=== PATIENT | female | born 1935 | race Caucasian/White ===

== ENCOUNTER 2017-06-30 12:08 | Inpatient (IN) | payer OTHER, BC ==
[~2017-06-30] VITALS: Ht 165.1 cm; Wt 69.4 kg
--- NOTE | ~2017-06-30 | HC ---
[facility] [place] [address] CONSULTATION Name: JEREMY GAFFNEY Room #: 201-P ADM IN M.R.#: [id number] Admission: 06/30/17 Attend Phys: Dylan Calderon DO Discharge: Date of : 39 Report #: [id number] THIS REPORT FOR: //name// CC: Dylan De Leon MD PRIMARY PHYSICIAN: Edmund De Leon MD REFERRAL PHYSICIAN: Dylan Calderon DO REASON FOR REFERRAL: Dyspnea. HISTORY OF PRESENT ILLNESS: The patient is an 82-year-old white female who presents to the emergency room with progressive dyspnea. She is felt to have heart failure. The patient also has COPD. A pulmonary consultation was requested. The patient is followed longitudinally by Dr. Blake Barajas for COPD. She was last seen in the office several months ago. The patient states that she was in her usual state of health until about for the past week or so, she has noticed increasing lower extremity edema and dyspnea. Chest x-ray on admission revealed cardiomegaly, [id number] left side pleural effusion with increasing interstitial edema. Otherwise, denies any chest pain, febrile illness, productive cough, nausea, vomiting, or diarrhea. PAST MEDICAL HISTORY: Notable for COPD, severity unknown; atrial fibrillation, hypertension, is followed longitudinally by Dr. Mari Douglas, child psychometrist at [facility], status post permanent pacemaker placement, hyperlipidemia, and chronic diastolic heart failure. PAST SURGICAL HISTORY: As mentioned above including pacemaker placement, status post right hip surgery. ALLERGIES: None. HOME MEDICATIONS: Reviewed. This includes brimonidine, Pravachol, timolol, Spiriva one capsule once a day, Pradaxa, Cardizem, digoxin, Lasix, and potassium supplements. FAMILY HISTORY: Noncontributory. SOCIAL HISTORY: She is a lifetime nonsmoker. Denies any alcohol use. [facility] [address] [place] [address] CONSULTATION Name: JEREMY GAFFNEY Room #: 201-P [facility] IN [facility].#: [id number] Admission: 06/30/17 Attend Phys: Dylan Calderon DO Discharge: Date of : 39 Report #: [id number] REVIEW OF SYSTEMS: As mentioned above, otherwise 10-point system review negative. PHYSICAL EXAMINATION: GENERAL: She is awake, alert, in no apparent distress. She appears mildly dyspneic. VITAL SIGNS: Temperature is 98.7 degrees Fahrenheit, pulse is 76, respiratory rate is 20, blood pressure 122/43 mmHg, and saturation 99%. HEENT: Normocephalic, atraumatic. NECK: Supple without any lymphadenopathy or thyromegaly. CHEST: Breath sounds are good bilaterally, decreased in the bases. No rales. Question of few scattered crackles. CARDIOVASCULAR: Heart sounds normal S1, S2. There are no obvious murmurs or gallops. Pulses are 2+/4+ bilaterally. BREASTS: Deferred. ABDOMEN: Soft, nontender, no organomegaly or masses felt. GENITOURINARY: Deferred. RECTAL: Deferred. EXTREMITIES: There is notable for 2+ bilateral pretibial edema. No cyanosis or clubbing. LABORATORY DATA: Chest x-ray as mentioned above. BNP is . WBC is 1400, hemoglobin 6.2, MCV is 87, MCH is 28, MCHC is 32, and platelets normal. Prealbumin is 37.8. IMPRESSION: 1. Progressive dyspnea, edema in this 82-year-old white female. Etiology is likely secondary to acute on chronic diastolic heart failure. 2. Profound neutropenia, anemia, etiology is unclear. 3. Chronic obstructive pulmonary disease, severity unknown, without obvious evidence of exacerbation. 4. Pleural effusion, mild to moderate left side, due to heart failure. Follow up chest x-ray following diuresis. 5. Atrial fibrillation, status post permanent pacemaker placement. RECOMMENDATION: We will continue bronchodilators. Wean O2 for saturation 90%. Agree with diuresis. Follow up chest x-ray regarding pleural effusion. If it does not improve with medical treatment, therapeutic thoracentesis might be helpful. She has also been seen by hematology regarding anemia and leukopenia. Thank you for this consultation. <ELECTRONICALLY SIGNED> By: Phillip Echeverria MD 07/03/17 1233 D: 1055 Phillip Echeverria MD /nt
--- NOTE | ~2017-06-30 | S ---
[facility] [address] [place] [address] SURGICAL PATH RPT PROCEDURE Name: LOLIS YE Room #: 201-P ADM IN M.R.#: [id number] Admission: 06/30/17 Date of : 39 Discharge: Report #: [id number] Path Case #: [id number] PATHOLOGY REPORT COLLECTION DATE: 07/02/2017 RECEIVED DATE: 07/03/2017 SUBMITTING PHYS: Dr. Dylan Abdi OTHER PHYS: Dr. Rafael De Leon SPECIMEN(S) RECEIVED: A.Bone marrow, biopsy B.Bone marrow, clot and/or particle prep C.Bone marrow, aspirate smears D.Peripheral smear * * * * * * * * * * * * FINAL DIAGNOSIS: Bone marrow aspirate, biopsy, cell clot and peripheral blood: - Peripheral blood with pancytopenia including severe normocytic anemia, moderate leukopenia and mild thrombocytopenia. 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 See comment. (ALIYA:rupinder; 07/08/2017) [facility] STAGING REPORT Tumor Site: Bone marrow SPECIMEN Specimen: Peripheral blood smear Bone marrow aspiration Bone marrow aspirate clot (cell block) Bone marrow core (trephine) biopsy Bone marrow core touch preparation (imprint) Procedure: Aspiration Aspiration Site: Not specified Biopsy Biopsy Site: Not specified TUMOR Histologic Type (Based on the 2008 WHO Classification): Mature B-cell Neoplasms Other: small B cell lymphoma with plasmacytic differentiation SPECIAL STUDIES Immunophenotyping (flow cytometry and / or immunohistochemistry): Performed, see separate report: flow cytometry [facility] [address] [address] SURGICAL PATH RPT PROCEDURE Name: LOLIS YE Room #: 201-P [facility] IN [facility]#: [id number] Admission: 06/30/17 Date of : 39 Discharge: Report #: [id number] Path Case #: [id number] Cytogenetic Studies: Performed, see separate report: [facility] [id number] COMMENT: Overall, the bone marrow is markedly hypercellular for the patient's age with 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 Background trilineage hematopoiesis is decreased. The differential diagnosis includes marginal zone lymphoma and lymphoplasmacytic lymphoma. There is approximately 80% involvement by immunohistochemical staining. Correlation with clinical history, additional laboratory data, and radiographic findings is required. Morphologic evaluation of an involved lymph node (if present) or lymphoid organ may provide additional information, if clinically indicated. Mild dyspoiesis is also noted which does not meet the morphologic criteria for myelodysplasia and correlation with clinical history and cytogenetics is also recommended. [employer] slides are co-reviewed with Dr. Haydee Diaz. The case was discussed preliminarily with Dr. Rafael Red on 07/03/2017 at approximately 6:00 PM and again on 07/08/2017 at 8:15 AM. (CLW:rupinder; 07/08/2017) PATHOLOGIST: Antonietta Thomas M.D. REPORT ELECTRONICALLY SIGNED BY: Antonietta Thomas M.D. DATE/TIME: 07/08/2017 11:55 * * * * * * * * * * * * MICROSCOPIC DESCRIPTION: CBC Data (07/02/17): WBC 1,400 /uL, RBC 2.43, hemoglobin 7.1 g/dL, hematocrit 21.2%, MCV 87.3 fL, MCH 29.0 pg, MCHC 33.3 g/dL, RDW 20.3%, and platelet count 136,000 /uL. Manual white blood cell differential: segs 55%, bands 6%, lymphs 36%, and monos 3%. Peripheral Blood Smear: Cytomorphological examination of the Redd's stained peripheral blood smear confirms the provided data. Red blood cells show severe normocytic with mild to moderate anisocytosis. Minimal poikilocytosis is identified. Occasional elliptocytes and spherocytes are seen. No schistocytes or microspherocytes are identified. White blood cells are decreased in number. They are predominantly granulocytes and lymphocytes. Granulocytes are predominantly segmented neutrophils and are without significant dyspoiesis or significant left shift. Lymphocytes are predominantly small, round, and mature appearing with condensed chromatin and scant cytoplasm with admixed large granular lymphocytes. On scanning, no markedly atypical lymphoid cells are seen. Monocytes are mature. Platelets are adequate (mildly decreased) in number and mainly normal [address] [address] SURGICAL PATH RPT PROCEDURE Name: LOLIS YE Room #: 201-P ADM IN .R.#: [id number] Admission: 06/30/17 Date of : 39 Discharge: Report #: [id number] Path Case #: [id number] in morphology with rare larger platelets noted. Aspirate Smears: Cytomorphological examination of the Redd's stained aspirate smears shows hypercellular spicules present. The overall cellularity is approximately 90%. There is a predominant population of small, round, mature appearing lymphocytes with condensed chromatin and scant cytoplasm. Rare lymphocytes have slight plasmacytoid morphology. No markedly atypical lymphoid cells are seen. Background trilineage hematopoiesis is decreased. Occasional granulocytes, including scattered basophils, are noted and are without significant dyspoiesis. Erythroid progenitors are mildly dyserythropoietic with irregular nuclear contours and nuclear cytoplasmic dyssynchrony. There are a normal number of megakaryocytes that are both normal and abnormal in morphology with variable sizes in nuclear abnormalities. Occasional plasma cells are without cytologic atypia. Iron stain of the aspirate smear shows 0/4+ iron positivity with no intact spicules present. Scattered progenitor cells are noted and no ringed sideroblasts are identified. Core Biopsy and Cell Clot: The decalcified bone marrow core biopsy is adequate. The bone marrow is hypercellular with an overall cellularity of approximately 95%. The predominant nucleated cell seen is a small, mature appearing lymphocyte with slightly irregular nuclear contours, condensed chromatin and scant to focally moderate cytoplasm. Neither a high mitotic rate nor abundant single cell necrosis is seen. Geographic necrosis is not identified. Background trilineage hematopoiesis is decreased. There are a normal number of both normal and abnormal megakaryocytes identified. The myeloid to erythroid ratio, myeloid maturation and erythroid maturation cannot be accurately evaluated. Bony trabeculae and blood vessels are unremarkable. The cell clot has very rare small spicules present that are similar in cellularity and differential morphology as previously described. Iron stain of the core biopsy (Block A1) shows 2/4+ iron positivity. Iron stain of the cell clot (Block B1) shows 0/4+ iron positivity with only a rare spicule present. To confirm the flow cytometry findings and to identify cells in a tissue architectural context, properly controlled immunohistochemical stains are performed. Block A1: PAX5 - Diffusely stains the neoplastic B-cells comprising approximately 80% of the marrow cellularity. CD3 - Highlights admixed T-cells. CD5 - Highlights admixed T-cells, no B-cell coexpression. CD43 - Highlights admixed T-cells and myeloid cells, no convincing B-cell coexpression. CD10 - No B-cell coexpression. BCL6 - No B-cell coexpression. [address] [address] SURGICAL PATH RPT PROCEDURE Name: GULSHANLOLIS M Room #: 201-P ADM IN M.R.#: [id number] Admission: 06/30/17 Date of : 39 Discharge: Report #: [id number] Path Case #: [id number] BCL2 - Diffusely reactive. Cyclin D1 - Lacks diffuse nuclear staining. Ki-67 - Mildly increased staining which includes progenitor myeloid and erythroid cells. CD138 - Stains scattered plasma cells comprising approximately 10% of the marrow cellularity. [place]/lambda in situ hybridization - [place] restricted with rare lambda positive cells present. Flow Cytometry: Flow cytometric immunophenotypic analysis was performed at [facility]. The diagnosis is "monoclonal B-cells, consistent with a B-cell lymphoproliferative disorder". There are 48.1% lymphocytes. Of the lymphocytes, there are 36% T-cells with a CD4/CD8 ratio of 1.6 and no aberrant T-cell antigen expression. There are 58% mature monoclonal B-cells with light chain restriction that shows CD19 mod, CD20 mod, CD5 neg, CD10 neg, CD11c neg, CD23 neg, HLA-DR mod, and kappa mod. Flow cytometry shows a monoclonal B-cell population without detectable CD5, CD10, or CD11c expression, consistent with a B-cell lymphoma/leukemia. Please see separate flow cytometry report from [facility] ([id number]). Cytogenetics Analysis: Cytogenetic chromosomal analysis is pending at [facility] ([id number]). (CLW:rupinder; 07/08/2017) GROSS PATHOLOGY: A. Received in formalin labeled "Lolis Ye, BM biopsy," is a single needle core of hamilton bone, measuring 1.2 cm in length and 0.2 cm in diameter. The specimen is submitted entirely in cassette A1, following decalcification. B. Received in formalin labeled "Lolis Ye, clot (BM aspirate)," is blood coagulum, measuring 0.1 x 0.1 x 0.1 cm in aggregate dimensions. The specimen is submitted entirely in cassette B1. (DAC; 07/03/2017) CLINICAL HISTORY: Shortness of breath, cytopenia, hepatosplenomegaly 82-year-old woman with pancytopenia. INITIAL CPT CODE(S): A; 49356, 55973, 18409, 81393, 96834, 76665, 99126, 96298, 75709, 94281, 12075, 09941, 47234, 98525, 50340 B; 60727, 38902 C; 18353, 64684 D; 88853 Professional services performed by [facility] at [address] [address] SURGICAL PATH RPT PROCEDURE Name: LOLIS YE Room #: 201-P ADM IN M.R.#: [id number] Admission: 06/30/17 Date of : 39 Discharge: Report #: [id number] Path Case #: [id number] [address], [place] [address] Technical services performed by [facility] at [address] [place] [address], [facility] [address] [address]. [facility] [address] [place] [address] PHONE: [phone] DIRECTOR: Claudy Bains M.D. * * * END OF REPORT * * *
--- NOTE | ~2017-06-30 | S ---
[facility] [place] [address] SURGICAL PATH RPT PROCEDURE Name: LOLIS GAFFNEY Room #: 201-P ADM IN M.R.#: [id number] Admission: 06/30/17 Date of : 39 Discharge: Report #: [id number] Path Case #: [id number] PATHOLOGY REPORT COLLECTION DATE: 07/01/2017 RECEIVED DATE: 07/01/2017 SUBMITTING PHYS: Dr. Rafael Red OTHER PHYS: SPECIMEN(S) RECEIVED: A.Peripheral smear * * * * * * * * * * * * FINAL DIAGNOSIS: Peripheral blood smear: - Severe normocytic anemia and moderate leukopenia. (See comment). COMMENT: Overall, the peripheral blood has severe normocytic anemia and moderate leukopenia. The leukopenia comprises all cell lineages including moderate neutropenia. The platelet count is within the normal reference range. The etiology of the findings is unclear based entirely on slide review. Potential causes or normocytic anemia include anemia or chronic disease, treated and/or compensated vitamin and mineral deficiencies, acute blood loss, dilutional and primary bone marrow disorders. Potential causes of leukopenia and neutropenia include infections, drug reactions and primary bone marrow disorders. Correlation with clinical history and additional laboratory data is recommended. (CLW:kelly; 07/02/2017) PATHOLOGIST: Antonietta Thomas M.D. REPORT ELECTRONICALLY SIGNED BY: Antonietta Thomas M.D. DATE/TIME: 07/02/2017 16:01 * * * * * * * * * * * * MICROSCOPIC DESCRIPTION: CBC Data (07/01/17): WBC 1,600 /uL, RBC 2.35, hemoglobin 6.8 g/dL, hematocrit 20.3%, MCV 86.5 fL, MCH 29.0 pg, MCHC 33.5 g/dL, RDW 21.1%. Platelet count 151,000 /uL. Manual white blood cell differential: segs 49%, bands 4%, lymphs 43%, monos 2%, eos 1%, and basos 1% with 1 NRBC per 100 WBC. Peripheral Blood Smear: Cytomorphological examination of the Redd's stained peripheral blood smear confirms the provided data. Red blood cells show severe normocytic anemia with mild to moderate anisocytosis. Minimal poikilocytosis is identified. Occasional elliptocytes and [address] [address] SURGICAL PATH RPT PROCEDURE Name: EPHRAIMLOLIS M Room #: 201-P ADM IN .R.#: [id number] Admission: 06/30/17 Date of : 39 Discharge: Report #: [id number] Path Case #: [id number] spherocytes are seen. No schistocytes or microspherocytes are identified. White blood cells are decreased in number. They are predominantly granulocytes and lymphocytes. Granulocytes are predominantly segmented neutrophils and are without significant dyspoiesis or significant left shift. Lymphocytes are predominantly small, round and mature appearing with condensed chromatin and scant cytoplasm with admixed large granular lymphocytes. On scanning, a rare lymphocyte has irregular cytoplasmic borders; however, no markedly atypical lymphoid cells are seen. Monocytes are mature. Platelets are adequate in number and mainly normal in morphology with rare larger platelets noted. A rare nucleated red blood cell is seen. GROSS PATHOLOGY: Received are two Redd stained peripheral blood smears labeled "Ephraim Lolis." CLINICAL HISTORY: 82 year old woman with anemia and leukopenia. Morphologic review of the peripheral blood smear is requested by the patient's physician. INITIAL CPT CODE(S): A; NC Professional services performed by [facility] at [facility] [address], [place] [address] Technical services performed by [facility] at [address] [place] [address], [address], [place] [address]. [facility] [place] [address] PHONE: [phone] DIRECTOR: Claudy Bains M.D. * * * END OF REPORT * * *
--- NOTE | ~2017-06-30 | HC ---
[facility] [place] [address] CONSULTATION Name: JEREMY GAFFNEY Room #: 201-P ADM IN M.R.#: [id number] Admission: 06/30/17 Attend Phys: Dylan Calderon DO Discharge: Date of : 39 Report #: [id number] THIS REPORT FOR: //name// CC: Dylan De Leon DATE OF SERVICE: 07/01/2017 REASON FOR CONSULTATION: Low urine output. HISTORY OF PRESENT ILLNESS: An 82-year-old patient presents with a recurrent admission for shortness of breath and swelling in her abdomen and lower extremities. She was admitted with similar issues in November of this year, underwent successful diuresis and stabilized, furosemide dose was decreased from 40 mg twice a day down to 20 mg once a day and over the course of several months, she has had progressive swelling, most recently now with progressive shortness of breath as well, poor appetite and poor intake, and was admitted for further evaluation and treatment. As far as we know, she has not had any renal disease, although she did have 2+ proteinuria on a dipstick urine from last August after she was admitted with what I believe a femur fracture. Her serum creatinine generally runs 0.6-0.8, it was up to 1.0 today, higher than usual for her. PAST MEDICAL HISTORY: She has had COPD; managed by Dr. Barajas for sometime, chronic atrial fibrillation with a pacemaker placed, history of diastolic dysfunction, prior hypertension, and right-sided heart failure with lower extremity swelling which she has had now for some time. She has also had a diagnosis of B12 deficiency and the femur fracture with surgery last August. She also has congestive heart failure, diastolic and right-sided heart failure with dilated right ventricle, elevated pulmonary artery pressures, and [id number] tricuspid regurgitation. SOCIAL HISTORY: She is retired, , was a smoker, but quit, occasional alcoholic drink. FAMILY HISTORY: Positive for lung cancer, throat cancer, and diabetes, but no renal disease. REVIEW OF SYSTEMS: GENERAL: She has felt poorly. EYES: Her vision seems to be okay. ENT: Hearing okay, swallows okay. Denies mouth sores or ulcers. ENDOCRINE: No diabetes. RESPIRATORY: She has been getting easily short-winded. CARDIAC: Denies chest pain. She has lower extremity swelling, has not had recent palpitations, but does have chronic atrial fibrillation. [address] [address] CONSULTATION Name: JEREMY GAFFNEY Room #: 201-P [facility] IN .R.#: [id number] Admission: 06/30/17 Attend Phys: Dylan Calderon DO Discharge: Date of : 39 Report #: [id number] GASTROINTESTINAL: She has had a poor appetite, but no bloody stool or hematemesis. No black stool. GENITOURINARY: She has had a reasonably good urinary stream without dysuria or history of urinary infections. NEUROLOGIC: Denies seizure, syncope, or previous stroke. Extensive history taken from the electronic medical record, from the patient at bedside. PHYSICAL EXAMINATION: VITAL SIGNS: This is an elderly patient, looking her stated age. She is thin and appears rather weak. SKIN: Shows no petechiae or rashes. SKELETAL: Shows protuberant abdomen. HEENT: Extraocular movements are full. Vision intact. No scleral icterus. Hearing intact. Mucous membranes are moist. Tongue, buccal mucosa benign. NECK: Veins are slightly distended, no carotid bruits are heard. CHEST: Shows diminished breath sounds at the bases. HEART: Irregular and distant. ABDOMEN: Soft and nontender, but protuberant and somewhat distended. EXTREMITIES: Show 2-3+ pitting dependent edema, particularly in the lower extremities and dependent areas. NEUROLOGIC: She shows generalized weakness. LABORATORY DATA: The B12 and folate levels were okay as well as the ferritin. Hemoglobin was 6.2 at the time of admission, white count only 1.4, platelets 151. Sodium was 139, potassium 3.7, chloride 106, bicarbonate 29, BUN 24, creatinine was 0.8; now 1.0. No urinalysis done. Albumin was only 2.4, total bilirubin up to 2.9, iron saturation normal at 32%. ASSESSMENT AND PLAN: 1. Volume overload. She has volume overload, it appears to be multifactorial. She appears to have right-sided heart failure, likely due to her chronic obstructive pulmonary disease. Other etiologies of course possible including previous right ventricular infarct and possible pulmonary emboli, most likely simply the chronic obstructive pulmonary disease that works here. The right-sided is failure related to ascites, congestion of both liver and spleen with what appears to be elevated bilirubin and low serum albumin, which also could be somewhat nutritional and she has pleural effusions and ascites. The fluid overload could also partially be due to low serum albumin, possibly from renal disease, urinary albumin will have to be checked. 2. Shortness of breath. She has pleural infusions and the anemia was certainly playing a role. Diuresis may help. She has had some blood transfusions. She may need more depending on symptomatic relief. 3. Anemia and leukopenia. is investigating possibly a bone marrow problem versus spleen is enlarged, but this could be simply congestive from right-sided failure and fluid overload. [facility] [address] [place] [address] CONSULTATION Name: JEREMY GAFFNEY Room #: 201-P [facility] IN M.R.#: [id number] Admission: 06/30/17 Attend Phys: Dylan Calderon DO Discharge: Date of : 39 Report #: [id number] 4. Chronic atrial fibrillation. 5. History of diastolic heart failure. She may have multifactorial diastolic heart failure, right-sided heart failure, and also she appears to have well diastolic blood pressures, which may be contributing to decreased renal perfusion and further fluid overload. I will decrease her Cardizem dose and try to get a diastolic blood pressure up and treat her with some IV Lasix in the meantime. 6. Renal cyst: She has a rather large renal cyst seen on her CAT scan on the right side 15 x 12 cm, which probably is of no particular significance. 7. Pleural effusions: Possibly may need a left pleural tap for shortness of breath to improve. By: 06 0153 Kenrick Mack MD /nt
--- NOTE | ~2017-06-30 | 2DMMODE ---
[facility] [address] [facility] [email or web address] [address] 2 D/M-MODE ECHOCARDIOGRAM Name: GULSHANJEREMY M Room #: 201-P [facility] IN M.R.#: [id number] Admission: 06/30/17 Attend Phys: Dylan Calderon, Discharge: Date of : 39 Date of Service: 07/01/17 1410 Report #: [id number] THIS REPORT FOR: //name// APPROVED REPORT Study performed: 07/01/2017 13:13:14 EXAM: Comprehensive 2D, Doppler, and color-flow Echocardiogram Patient Location: Bedside Room #: 201 Status: routine BSA: 1.80 HR: 75 bpm BP: 120/49 mmHg Other Information Study Quality: Good Indications Congestive Heart Failure COPD Atrial Fibrillation Pacemaker Hypertension/HDD 2D Dimensions RVDd: 44.53 mm LVEF(%): 54.69 (>50%) IVSd: 9.36 (7-11mm) LVOT Diam: 20.72 (18-24mm) LVDd: 56.05 mm PWd: 9.71 (7-11mm) Ascending Ao: 24.44 (22-36mm) LVDs: 39.94 (25-40mm) Aortic Root: 28.67 mm IVC: 33.00 mm Omer's LVEF: 54.69 % Volumes Left Atrial Volume (Systole) Single Plane 4CH: 118.93 mL Single Plane 2CH: 119.49 mL LA ESV Index: 71.00 mL/m2 Aortic Valve AoV Peak Valerio.: 1.86 m/s AO Peak Gr.: 13.87 mmHg LVOT Max P.75 mmHg LVOT Max V: 1.09 m/s KWESI Vmax: 1.98 cm2 [facility] [employer] [place] [address] 2 D/M-MODE ECHOCARDIOGRAM Name: JEREMY GAFFNEY Room #: 201-P [facility].#: [id number] Admission: 06/30/17 Attend Phys: Dylan Calderon, Discharge: Date of : 37 Date of Service: 07/01/17 1410 Report #: [id number] Mitral Valve MV Decel. Time: 174.40 ms MV E Max Valerio.: 1.42 m/s Pulmonary Valve PV Peak Valerio.: 1.09 m/s PV Peak Gr.: 4.72 mmHg MS End Vmax: 1.06 m/s Tricuspid Valve TR Peak Valerio.: 3.07 m/s TR Peak Gr.: 38.28 mmHg PA Pressure: 53.00 mmHg Left Ventricle Left ventricle is at the upper limits of normal. There is normal left ventricular wall thickness. Left ventricular ejection fraction is severely decreased. LVEF is 60-65%. This study is not technically sufficient to allow evaluation of the LV diastolic function. Right Ventricle Right ventricle is dilated. The right ventricular systolic function is normal. Pacemaker lead is present in the right ventricle. Atria Left atrium is dilated. Right atrium is dilated. Pacemaker lead is present in the right atrium. Aortic Valve The aortic valve is normal in structure. Aortic valve is calcified. No aortic regurgitation is present. There is no aortic valvular stenosis. Mitral Valve The mitral valve is normal in structure. There is mitral annular calcification. Mild to moderate mitral regurgitation. No evidence of mitral valve stenosis. Tricuspid Valve The tricuspid valve is normal in structure. There is no tricuspid valve stenosis. There is moderate to severe tricuspid regurgitation. The right atrial pressure is estimated at mmHg. There is moderate pulmonary hypertension. Estimated PAP was 53 mmHg. Pulmonic Valve The pulmonary valve is normal in structure. Mild pulmonic regurgitation. [address] [address] 2 D/M-MODE ECHOCARDIOGRAM Name: JEREMY GAFFNEY Room #: 201-P [facility] IN [facility]#: [id number] Admission: 06/30/17 Attend Phys: Dylan Calderon, Discharge: Date of : 39 Date of Service: 07/01/17 1410 Report #: [id number] Great Vessels The aortic root is normal in size. The inferior vena cava is dilated with no inspiratory collapse. Pericardium There is no pericardial effusion. <Conclusion> Left ventricle is at the upper limits of normal. LVEF is 60-65%. Right ventricle is dilated. The right ventricular systolic function is normal. Pacemaker lead is present in the right ventricle. Left atrium is dilated. Right atrium is dilated. Pacemaker lead is present in the right atrium. The aortic valve is normal in structure. Aortic valve is calcified. There is no aortic valvular stenosis. No aortic regurgitation is present. The mitral valve is normal in structure. There is mitral annular calcification. Mild to moderate mitral regurgitation. The tricuspid valve is normal in structure. There is moderate to severe tricuspid regurgitation. The right atrial pressure is estimated at mmHg. There is moderate pulmonary hypertension. Estimated PAP was 53 mmHg. There is no tricuspid valve stenosis. The pulmonary valve is normal in structure. Mild pulmonic regurgitation. <ELECTRONICALLY SIGNED> By: Jn Zamudio MD 07/01/17 1410 09 141 Jn Zamudio MD /INF
--- NOTE | ~2017-06-30 | EKG ---
[address] [address] ELECTROCARDIOGRAM REPORT Name: JEREMY GAFFNEY Room #: 201-P ADM IN M.R.#: [id number] Admission: 06/30/17 Attend Phys: Dylan Calderon DO Discharge: Date of : 39 Report #: [id number] THIS REPORT FOR: //name// [facility] ED Test Date: 2017-06-30 Test Time: 12:27:40 Pat Name: JEREMY GAFFNEY Department: Room: 201 Gender: F Route Sales Trainee: SHAHEEN : 1935 Requested By: Lolita Cole Order Number: [id number] MD: Gian Rothman Measurements Intervals [place] Rate: 77 P: 0 NV: 220 QRS: 97 QRSD: 114 T: -79 QT: 322 QTc: 365 Interpretive Statements Atrial fibrillation with a moderate ventricular response Nonspecific intraventricular conduction delay Nonspecific ST and T wave abnormality Compared to ECG 11/26/2016 18:45:33 Ventricular pacing is no longer present Electronically Signed On 07-01-2017 8:17:13 CDT by Gian Rothman [email or web address] <ELECTRONICALLY SIGNED> By: Gian Rothman MD, [facility] 07/01/17 0817 1227 1227 Gian Rothman MD, [facility] /EPI
[~2017-06-30 12:08] MED LIST: ATENOLOL 25 MG25 M1 PG; AUGMENTIN 875875 MG PO; B12INJ SUBQ; BISAC-EVAC10 MG RECTAL; BRIMONIDINE TAR15 M1 OP; CALTRATE-600 W1 EACH PO; CARDIZEM CD180 MG PO; COLACE 100 MG100 MG PO; DIGOXIN125 MCG PO; FLOMAX0.4 MG PO; HYDROCODONE-APA1 TA1 PO; KLOR-CON 1010 MEQ PO; LASIX 20 MG TAB20 MG PO; LASIX 40 MG TAB40 M2 PO; LIDODERM 5%1 PATC1 TRANSDERM; NEXIUM40 MG PO; OXYBUTYNIN ER 55 M1 PO; PRADAXA150 MG PO; PRAVACHOL40 MG PO; PROBIOTIC1 EAC1 PO; SENNA PO; SPIRIVA INH; TESSALON PERLE100 MG PO; TIMOLOL GL0.5 %/5 M1 OP; VENTOLIN HFA 1818 GM INH; ZPAK PO
[2017-06-30 12:09] VITALS: BP 148/58
[2017-06-30 12:30] LABS: MCH 28.3 pg (26.0-34.0)
[2017-06-30 12:32] LABS: MCHC 32.3 g/dL (28.0-37.0); MCV 87.8 fL (80.0-100.0); PLATELET COUNT 168 thou/uL (150-400); RDW 24.1 % (10.5-14.5)
[2017-06-30] MEDS ORDERED: LASIX 20 MG TAB20 MG PO (12:40)
[2017-06-30 12:44] LABS: ANION GAP 7 mmol/L (7-16); BUN 22 mg/dL (7-18); CALCIUM 8.4 mg/dL (8.5-10.1); CHLORIDE 107 mmol/L (98-107); CO2 27 mmol/L (21-32); CREATININE 0.9 mg/dL (0.6-1.0); GLUCOSE 96 mg/dL (74-106); SODIUM 141 mmol/L (136-145)
[2017-06-30 12:49] LABS: POTASSIUM 3.9 mmol/L (3.5-5.1)
[2017-06-30 12:54] LABS: TROPONIN-I < 0.04 ng/mL (<0.04-0.07)
[2017-06-30 12:56] LABS: MANUAL DIFF YES
[2017-06-30 12:58] LABS: HEMATOCRIT 19.3 % (37.0-47.0); HEMOGLOBIN 6.2 gm/dL (12.0-15.0); WBC 1.4 thou/uL (4.0-11.0)
[2017-06-30 13:21] VITALS: BP 133/59
[2017-06-30 13:49] LABS: ABSOLUTE NEUTROPHILS 0.8 thou/uL (1.4-8.2); ANISOCYTOSIS 1+; TOTAL CELL COUNT 100
[2017-06-30 14:30] VITALS: BP 133/56
[2017-06-30 15:54] VITALS: BP 111/53
[2017-06-30 16:31] VITALS: BP 115/51; BP 120/53
[2017-06-30 18:50] VITALS: BP 115/51; BP 118/60; BP 125/63
[2017-06-30 23:06] LABS: HEMATOCRIT 21.3 % (37.0-47.0); HEMOGLOBIN 7.2 gm/dL (12.0-15.0)
[2017-07-01] VITALS (7 sets, daily range): BP systolic 116–125; BP diastolic 43–66
[2017-07-01 03:46] LABS: HEMOGLOBIN 6.8 gm/dL (12.0-15.0); RBC 2.35 mil/uL (4.20-5.00)
[2017-07-01 03:49] LABS: HEMATOCRIT 20.3 % (37.0-47.0); MCHC 33.5 g/dL (28.0-37.0); MCV 86.5 fL (80.0-100.0); PLATELET COUNT 151 thou/uL (150-400); RDW 21.1 % (10.5-14.5)
[2017-07-01 03:57] LABS: POTASSIUM 3.7 mmol/L (3.5-5.1)
[2017-07-01 04:02] LABS: MANUAL DIFF YES
[2017-07-01 04:05] LABS: WBC 1.6 thou/uL (4.0-11.0)
[2017-07-01 04:49] LABS: CALCIUM 7.8 mg/dL (8.5-10.1)
[2017-07-01 05:27] LABS: ABSOLUTE NEUTROPHILS 0.8 thou/uL (1.4-8.2); NUCLEATED RBCS 1 /100WBC; TOTAL CELL COUNT 100
[2017-07-01 05:28] LABS: ANISOCYTOSIS 2+
[2017-07-01 09:48] LABS: ALBUMIN 2.4 g/dL (3.4-5.0); DIRECT BILIRUBIN 1.1 mg/dL (<0.1-0.3); TOTAL BILIRUBIN 2.9 mg/dL (<0.1-1.0); TOTAL PROTEIN 6.2 g/dL (6.4-8.2)
[2017-07-01 09:50] LABS: OBSERVED RETIC COUNT 2.97 % (0.6-2.6)
[2017-07-01 10:44] LABS: FOLIC ACID 22.1 ng/mL (8.6-58.9)
[2017-07-01 15:28] LABS: HEMOGLOBIN 8.3 gm/dL (12.0-15.0)
[2017-07-01 15:30] LABS: HEMATOCRIT 24.7 % (37.0-47.0)
[2017-07-01 21:06] LABS: URINE BILIRUBIN 1+ (Negative); URINE BLOOD 2+ (Negative); URINE COLOR YELLOW; URINE GLUCOSE-RANDOM* NEGATIVE (Negative); URINE KETONES NEGATIVE (Negative); URINE NITRITE NEGATIVE (Negative); URINE PROTEIN (DIPSTICK) TRACE (Negative); URINE SPECIFIC GRAVITY <= 1.005 (1.003-1.035); URINE UROBILINOGEN >= 8.0 E.U./dl (0.2-1.0)
[2017-07-01 21:12] LABS: PROT/CREAT RATIO 0.3; URINE CREATININE-RANDOM* 93.5 mg/dL; URINE PROTEIN-RANDOM* 28.5 mg/dL (<11.9)
[2017-07-01 21:13] LABS: ICTOTEST (BILI CONFIRMATORY) Positive (Negative)
[2017-07-01 21:21] LABS: SQUAMOUS 0-3 Few /LPF (0-3)
[2017-07-01 21:22] LABS: BACTERIA 1-9 Few /HPF (None Seen); CASTS None Seen /LPF (None Seen); CRYSTALS None Seen /LPF (None Seen); URINE RBC 3-10 Few /HPF (0-2); URINE WBC 0-5 Rare /HPF (0-5)
[2017-07-02 03:15] LABS: HEMOGLOBIN 7.1 gm/dL (12.0-15.0)
[2017-07-02 03:17] LABS: HEMATOCRIT 21.2 % (37.0-47.0); MCHC 33.3 g/dL (28.0-37.0); MCV 87.3 fL (80.0-100.0); PLATELET COUNT 136 thou/uL (150-400); RBC 2.43 mil/uL (4.20-5.00); RDW 20.3 % (10.5-14.5)
[2017-07-02 03:27] LABS: ALBUMIN 2.2 g/dL (3.4-5.0); CALCIUM 7.8 mg/dL (8.5-10.1); PHOSPHORUS 3.5 mg/dL (2.5-4.9); POTASSIUM 3.8 mmol/L (3.5-5.1)
[2017-07-02 03:34] VITALS: BP 122/53
[2017-07-02 03:49] LABS: MANUAL DIFF YES
[2017-07-02 03:50] LABS: WBC 1.4 thou/uL (4.0-11.0)
[2017-07-02 07:52] VITALS: BP 119/52
[2017-07-02 09:03] LABS: ABSOLUTE NEUTROPHILS 0.9 thou/uL (1.4-8.2); ANISOCYTOSIS 1+; HYPOCHROMASIA 2+; PLATELET ESTIMATE NORMAL; POLYCHROMASIA SLIGHT; TOTAL CELL COUNT 100
[2017-07-02 09:21] VITALS: BP 119/52
[2017-07-02 11:52] VITALS: BP 116/54
[2017-07-02 15:30] VITALS: BP 118/53
[2017-07-02 19:24] VITALS: BP 121/49
[2017-07-03 04:32] LABS: HEMOGLOBIN 6.9 gm/dL (12.0-15.0); PLATELET COUNT 124 thou/uL (150-400)
[2017-07-03 04:34] LABS: HEMATOCRIT 20.4 % (37.0-47.0); MCH 29.6 pg (26.0-34.0); MCHC 33.8 g/dL (28.0-37.0); MCV 87.6 fL (80.0-100.0); RBC 2.33 mil/uL (4.20-5.00); RDW 20.4 % (10.5-14.5)
[2017-07-03 04:35] VITALS: BP 123/54
[2017-07-03 04:36] LABS: MANUAL DIFF YES
[2017-07-03 04:39] LABS: WBC 1.1 thou/uL (4.0-11.0)
[2017-07-03 05:00] LABS: CALCIUM 7.8 mg/dL (8.5-10.1); CREATININE 0.9 mg/dL (0.6-1.0); POTASSIUM 4.3 mmol/L (3.5-5.1)
[2017-07-03 05:57] LABS: ABSOLUTE NEUTROPHILS 0.7 thou/uL (1.4-8.2); TOTAL CELL COUNT 50
[2017-07-03 06:03] LABS: ANISOCYTOSIS 2+; LARGE PLATELETS RARE
[2017-07-03 07:11] VITALS: BP 116/55
[2017-07-03 11:19] VITALS: BP 114/54; BP 118/52
[2017-07-03 14:48] VITALS: BP 114/54; BP 117/57; BP 119/58
[2017-07-03 15:28] VITALS: BP 117/57
[2017-07-03 19:00] VITALS: BP 138/62
[2017-07-03 19:47] LABS: HEMATOCRIT 24.3 % (37.0-47.0); HEMOGLOBIN 8.5 gm/dL (12.0-15.0)
[2017-07-04 03:00] VITALS: BP 133/52
[2017-07-04 08:08] VITALS: BP 120/54
[2017-07-04 11:56] VITALS: BP 111/51
[2017-07-04 14:34] VITALS: BP 111/51
[2017-07-04 15:38] VITALS: BP 119/58
[2017-07-04 18:58] VITALS: BP 127/58
[2017-07-05 03:42] VITALS: BP 109/49
[2017-07-05 07:47] VITALS: BP 112/54
[2017-07-05 08:38] LABS: HEMATOCRIT 25.1 % (37.0-47.0); HEMOGLOBIN 8.6 gm/dL (12.0-15.0); MCH 29.8 pg (26.0-34.0); MCHC 34.3 g/dL (28.0-37.0); MCV 86.8 fL (80.0-100.0); PLATELET COUNT 123 thou/uL (150-400); RBC 2.89 mil/uL (4.20-5.00); RDW 19.1 % (10.5-14.5)
[2017-07-05 08:39] LABS: MANUAL DIFF YES
[2017-07-05 08:41] LABS: WBC 1.2 thou/uL (4.0-11.0)
[2017-07-05 08:43] LABS: CALCIUM 8.1 mg/dL (8.5-10.1); CREATININE 0.9 mg/dL (0.6-1.0)
[2017-07-05 08:50] LABS: POTASSIUM 3.7 mmol/L (3.5-5.1)
[2017-07-05 10:09] LABS: ABSOLUTE NEUTROPHILS 0.9 thou/uL (1.4-8.2); ANISOCYTOSIS 2+; OVALOCYTES 1+; TOTAL CELL COUNT 100
[2017-07-05 12:06] VITALS: BP 124/55
[2017-07-05 16:23] VITALS: BP 95/55
[2017-07-05 19:39] VITALS: BP 121/49
[2017-07-06 04:39] VITALS: BP 118/49
[2017-07-06 07:30] VITALS: BP 125/52
[2017-07-06 11:50] VITALS: BP 125/39
[2017-07-06 16:20] VITALS: BP 124/52
[2017-07-06 20:00] VITALS: BP 122/55
[2017-07-07 00:30] VITALS: BP 125/62
[2017-07-07 03:13] LABS: HEMOGLOBIN 7.3 gm/dL (12.0-15.0)
[2017-07-07 03:15] LABS: HEMATOCRIT 21.9 % (37.0-47.0); MCH 29.1 pg (26.0-34.0); MCHC 33.4 g/dL (28.0-37.0); MCV 87.1 fL (80.0-100.0); PLATELET COUNT 119 thou/uL (150-400); RBC 2.51 mil/uL (4.20-5.00); RDW 19.3 % (10.5-14.5)
[2017-07-07 03:16] LABS: CALCIUM 7.8 mg/dL (8.5-10.1); CREATININE 0.7 mg/dL (0.6-1.0); POTASSIUM 3.8 mmol/L (3.5-5.1)
[2017-07-07 03:17] LABS: MANUAL DIFF YES
[2017-07-07 04:30] VITALS: BP 136/36
[2017-07-07 04:36] LABS: ABSOLUTE NEUTROPHILS 0.7 thou/uL (1.4-8.2); ANISOCYTOSIS 2+; TOTAL CELL COUNT 100
[2017-07-07 04:50] LABS: LARGE PLATELETS FEW
[2017-07-07 08:15] VITALS: BP 121/41
[2017-07-07 12:09] VITALS: BP 111/39
[2017-07-07 15:56] VITALS: BP 119/54
[2017-07-07 19:24] VITALS: BP 127/51
[2017-07-08 03:45] LABS: HEMATOCRIT 22.3 % (37.0-47.0); HEMOGLOBIN 7.3 gm/dL (12.0-15.0); MANUAL DIFF YES; MCH 28.8 pg (26.0-34.0); MCHC 32.9 g/dL (28.0-37.0); MCV 87.6 fL (80.0-100.0); PLATELET COUNT 133 thou/uL (150-400); RBC 2.55 mil/uL (4.20-5.00); RDW 18.9 % (10.5-14.5); WBC 1.1 thou/uL (4.0-11.0)
[2017-07-08 03:54] LABS: CALCIUM 7.7 mg/dL (8.5-10.1); CREATININE 0.7 mg/dL (0.6-1.0); POTASSIUM 3.8 mmol/L (3.5-5.1)
[2017-07-08 04:00] VITALS: BP 120/51
[2017-07-08 07:22] VITALS: BP 125/47
[2017-07-08 09:19] LABS: ABSOLUTE NEUTROPHILS 0.7 thou/uL (1.4-8.2); PLATELET ESTIMATE NORMAL; TOTAL CELL COUNT 100
[2017-07-08 09:20] LABS: ANISOCYTOSIS 1+
[2017-07-08 11:10] VITALS: BP 104/30
[2017-07-08 20:30] VITALS: BP 116/45
[2017-07-09 03:55] VITALS: BP 117/46
[2017-07-09 06:04] LABS: HEMOGLOBIN 7.2 gm/dL (12.0-15.0); MCHC 33.8 g/dL (28.0-37.0)
[2017-07-09 06:07] LABS: HEMATOCRIT 21.1 % (37.0-47.0); MCH 29.4 pg (26.0-34.0); MCV 86.8 fL (80.0-100.0); PLATELET COUNT 146 thou/uL (150-400); RBC 2.44 mil/uL (4.20-5.00); RDW 19.2 % (10.5-14.5)
[2017-07-09 06:15] LABS: MANUAL DIFF YES
[2017-07-09 06:16] LABS: CALCIUM 8.1 mg/dL (8.5-10.1); CREATININE 0.7 mg/dL (0.6-1.0); MAGNESIUM 1.9 mg/dL (1.8-2.4); POTASSIUM 3.8 mmol/L (3.5-5.1)
[2017-07-09 07:30] VITALS: BP 120/43
[2017-07-09 08:38] LABS: ABSOLUTE NEUTROPHILS 0.7 thou/uL (1.4-8.2); ANISOCYTOSIS 1+; HYPOCHROMASIA 2+; PLATELET ESTIMATE NORMAL; TOTAL CELL COUNT 100
[2017-07-09 11:47] VITALS: BP 115/44
[2017-07-09 16:10] VITALS: BP 114/42
[2017-07-09 17:08] LABS: CALCIUM 8.4 mg/dL (8.5-10.1); CREATININE 0.9 mg/dL (0.6-1.0); POTASSIUM 4.6 mmol/L (3.5-5.1)
[2017-07-09 17:14] LABS: ALBUMIN 2.4 g/dL (3.4-5.0); TOTAL BILIRUBIN 1.6 mg/dL (<0.1-1.0); TOTAL PROTEIN 7.1 g/dL (6.4-8.2)
[2017-07-09 19:30] VITALS: BP 136/50
[2017-07-10] VITALS (11 sets, daily range): BP systolic 104–137; BP diastolic 34–57
[2017-07-11 03:13] VITALS: BP 121/42
[2017-07-11 03:52] LABS: CALCIUM 7.7 mg/dL (8.5-10.1); POTASSIUM 4.4 mmol/L (3.5-5.1)
[2017-07-11 04:02] LABS: PLATELET COUNT 167 thou/uL (150-400)
[2017-07-11 04:05] LABS: HEMATOCRIT 20.9 % (37.0-47.0); MCH 29.4 pg (26.0-34.0); MCHC 33.6 g/dL (28.0-37.0); MCV 87.4 fL (80.0-100.0); RBC 2.39 mil/uL (4.20-5.00)
[2017-07-11 04:33] LABS: MANUAL DIFF YES
[2017-07-11 07:20] VITALS: BP 117/49
[2017-07-11 08:30] LABS: ABSOLUTE NEUTROPHILS 0.6 thou/uL (1.4-8.2); ANISOCYTOSIS 1+; HYPOCHROMASIA 2+; PLATELET ESTIMATE NORMAL; TOTAL CELL COUNT 100
[2017-07-11 11:14] VITALS: BP 124/52
[2017-07-11] MEDS ORDERED: DUONEB 2.5-0.5 M3 ML INH (12:15)
[2017-07-11] MEDS ORDERED: CARDIZEM CD180 MG PO (12:17)
[2017-07-11] MEDS ORDERED: COLACE 100 MG100 MG PO (12:17)
[2017-07-11] MEDS ORDERED: PROTONIX40 M1 PO (12:25)
[2017-07-11] MEDS ORDERED: PREDNISONE 10 M10 MG PO (12:30)
[2017-07-11] MEDS ORDERED: ALLOPURINOL 30300 M1 PO (12:30)
== END 2017-07-11 15:45 | DRG 840 ==
LOC: ER 12:08 → EROBS 13:08 → 2N 13:08
PROVIDERS: Emergency Medicine; Family Medicine; Internal Medicine Geriatric Medicine; Internal Medicine Hematology & Oncology; Internal Medicine Nephrology; Nurse Practitioner; Nurse Practitioner Acute Care
PROC: 30243N1 Transfusion of Nonautologous Red Blood Cells into Central Vein, Percutaneous Approach (ICD-10-PCS; 2017-07-01)
PROC: 07DR3ZX Extraction of Iliac Bone Marrow, Percutaneous Approach, Diagnostic (ICD-10-PCS; principal; 2017-07-02)
PROC: 02HV33Z Insertion of Infusion Device into Superior Vena Cava, Percutaneous Approach (ICD-10-PCS; 2017-07-09)
DX: C83.10 Mantle cell lymphoma, unspecified site (principal); I50.43 Acute on chronic combined systolic (congestive) and diastolic (congestive) heart failure; J96.02 Acute respiratory failure with hypercapnia; J96.01 Acute respiratory failure with hypoxia; D61.818 Other pancytopenia; J44.1 Chronic obstructive pulmonary disease with (acute) exacerbation; C85.90 Non-Hodgkin lymphoma, unspecified, unspecified site; I11.0 Hypertensive heart disease with heart failure; E78.5 Hyperlipidemia, unspecified; I48.91 Unspecified atrial fibrillation; H40.9 Unspecified glaucoma; I08.1 Rheumatic disorders of both mitral and tricuspid valves; R16.0 Hepatomegaly, not elsewhere classified; I49.5 Sick sinus syndrome; I27.2 Other secondary pulmonary hypertension; Z80.1 Family history of malignant neoplasm of trachea, bronchus and lung; Z95.0 Presence of cardiac pacemaker; Z92.21 Personal history of antineoplastic chemotherapy
CPT/HCPCS: 10081; 10194; 27000

== ENCOUNTER → 2017-09-09 | Outpatient (CLI) | payer OTHER, BC ==
[~2017-09-09] MED LIST changes: +ALLOPURINOL 30300 M1 PO; +DUONEB 2.5-0.5 M3 ML INH; +PREDNISONE 10 M10 MG PO; +PROTONIX40 M1 PO
== END ==
LOC: RAD 13:10
DX: J44.9 Chronic obstructive pulmonary disease, unspecified (principal); J98.11 Atelectasis; J90 Pleural effusion, not elsewhere classified

== ENCOUNTER 2018-01-19 11:59 | Emergency (ER) | payer OTHER, BC ==
[~2018-01-19] VITALS: Ht 167.6 cm; Wt 68.0 kg
[2018-01-19 13:15] LABS: URINE BILIRUBIN NEGATIVE (Negative); URINE BLOOD NEGATIVE (Negative); URINE CLARITY CLEAR; URINE COLOR YELLOW; URINE GLUCOSE-RANDOM* NEGATIVE (Negative); URINE KETONES NEGATIVE (Negative); URINE LEUKOCYTES-REFLEX NEGATIVE (Negative); URINE NITRITE-REFLEX NEGATIVE (Negative); URINE PROTEIN (DIPSTICK) NEGATIVE (Negative)
[2018-01-19] MEDS ORDERED: NORFLEX100 MG PO ×2 (15:35→15:37)
[2018-01-19] MEDS ORDERED: NORCO 5-325 TA1 EACH PO ×2 (15:35→15:37)
[2018-01-19] MEDS ORDERED: SENNA-DOCUSATE1 EACH PO ×2 (15:35→15:37)
== END 2018-01-19 16:53 | disposition home or self-care (01) ==
LOC: ER 11:59
PROVIDERS: Emergency Medicine
DX: S39.012A Strain of muscle, fascia and tendon of lower back, initial encounter (principal); I10 Essential (primary) hypertension; E78.00 Pure hypercholesterolemia, unspecified; I48.91 Unspecified atrial fibrillation; J44.9 Chronic obstructive pulmonary disease, unspecified; Z95.0 Presence of cardiac pacemaker; X58.XXXA Exposure to other specified factors, initial encounter; Y93.89 Activity, other specified; Y92.89 Other specified places as the place of occurrence of the external cause; Y99.8 Other external cause status

== ENCOUNTER 2018-01-21 10:11 | Inpatient (IN) | payer OTHER, BC ==
[~2018-01-21] VITALS: Ht 167.6 cm; Wt 68.0 kg
--- NOTE | ~2018-01-21 | HC ---
[facility] [place] [address] CONSULTATION Name: JEREMY GAFFNEY Room #: 227-P ADM IN M.R.#: [id number] Admission: 01/21/18 Attend Phys: Minesh Vee MD Discharge: Date of : 37 Report #: [id number] THIS REPORT FOR: //name// CC: Minesh De Leon DATE OF SERVICE: 01/22/2018 CHIEF COMPLAINT: Low back pain. HISTORY OF PRESENT ILLNESS: This 82-year-old female is frail, but has been recently active and independent at home up until recently. She is here with her son complaining of rather severe low back pain, which started about 10 days ago without any specific accident or injury. Her recent medical history is pertinent for history of lymphoma, which has been managed with chemotherapy and apparently good clinical result. She denies significant previous back pain and at this time denies any radiating leg pain, numbness or weakness. She is having moderate ongoing mid lumbar pain. She was here in the Emergency Room several days ago and then discharged and returns principally because she wanted to be back in the hospital, so that she could have an MRI study, which was previously suggested. Her previous CT scan in the Emergency Department had revealed multiple areas of degenerative change, but no clear evidence of fracture nor any other significant structural problems. Since her admission to the hospital, she has been on oral pain medication and has been assisted with transfers. She notes her back symptoms are still significant, but have actually improved somewhat. She and her son both agree that she is really not having any leg pain, numbness or weakness nor any bowel or bladder symptoms. Objectively, she is alert and oriented and is able to move herself about in bed and sit upright with only moderate low back discomfort. She has good movement of both upper extremities without pain. The low back is mildly uncomfortable in the upper lumbar region to palpation or movement, but there is no localized point tenderness and no apparent bruising or swelling. The pelvis is stable and nontender. She has good movement of both lower extremities at the hip, knee and ankle without significant joint discomfort. Neurologic evaluation of both lower extremities seems to be normal. X-rays and CT scan and MRI study revealed moderate multilevel degenerative change throughout the low back. The CT scan and plain x-rays do not reveal evidence of fracture; however, the MRI study does reveal an area of increased signal at the upper aspect of L1 with minor endplate deformity which certainly could be consistent with a small recent compression fracture at that level. The radiologist feels this is probably a real recent compression deformity rather than a chronic degenerative change, although [place] [address] CONSULTATION Name: JEREMY GAFFNEY Room #: 227-P [facility] IN M.R.#: [id number] Admission: 01/21/18 Attend Phys: Minesh Vee MD Discharge: Date of : 37 Report #: [id number] disk bulging and facet hypertrophy at each level. No other levels reveal any significant acute changes. I have discussed these issues at some length with the patient and her son. I have explained that she probably does have a minor compression fracture at L1, which is the primary source of her current discomfort. This may be related to her lymphoma and chemotherapy treatment or may simply be the result of age and generalized osteoporosis. In either case, we reviewed quite a number of treatment options including ongoing medical management with pain medications as needed, a supportive back brace or vertebroplasty, which was suggested by the radiologist. They seem interested in vertebroplasty. She states she is unwilling to wear any sort of back support or back brace, even though I have explained this might be helpful with her symptoms. She is currently using a low dose pain medication in appropriate fashion and will probably continue this. She and her son are hoping she can be discharged from the hospital and are trying to make plans and arrangements for assistance at home or at a facility. She feels she would like to consider a vertebroplasty procedure tomorrow if the radiologist agrees and feels this is likely to result in symptom improvement. Therefore, we will go ahead with scheduling for consultation with Interventional Radiology for vertebroplasty procedure. I would continue her current pain medication. She probably needs to follow up with her oncologist with regard to her lymphoma issue. I do not think any further orthopedic followup nor certainly any surgical intervention will be necessary or appropriate. <ELECTRONICALLY SIGNED> By: Bobby Pina MD 01/23/18 1120 1824 26 Bobby Pina MD /nt
[~2018-01-21 10:11] MED LIST changes: +NORCO 5-325 TA1 EACH PO; +NORFLEX100 MG PO; +SENNA-DOCUSATE1 EACH PO
[2018-01-21 10:12] VITALS: BP 140/55
[2018-01-21 10:43] LABS: ABSOLUTE NEUTROPHILS 2.7 thou/uL (1.4-8.2); BASOPHILS 1.4 % (0.0-2.0); EOSINOPHILS 5.9 % (0.0-3.0); HEMOGLOBIN 12.5 gm/dL (12.0-15.0); LYMPHOCYTES 17.1 % (24.0-44.0); MCH 28.5 pg (26.0-34.0); MCHC 33.7 g/dL (28.0-37.0); MCV 84.6 fL (80.0-100.0); MONOCYTES 7.7 % (1.0-8.0); PLATELET COUNT 298 thou/uL (150-400); POLYS 67.9 % (36.0-66.0); RBC 4.37 mil/uL (4.20-5.00); RDW 16.1 % (10.5-14.5); WBC 3.9 thou/uL (4.0-11.0)
[2018-01-21 10:52] LABS: CALCIUM 9.3 mg/dL (8.5-10.1); CREATININE 0.7 mg/dL (0.6-1.0); POTASSIUM 4.1 mmol/L (3.5-5.1)
[2018-01-21 13:08] VITALS: BP 141/68
[2018-01-21 14:50] VITALS: BP 141/68
[2018-01-21 15:40] VITALS: BP 135/69
[2018-01-21 20:00] VITALS: BP 114/63
[2018-01-22 07:25] VITALS: BP 104/48
[2018-01-22] MEDS ORDERED: PRADAXA150 MG PO (12:00)
[2018-01-22] MEDS ORDERED: LASIX 40 MG TAB40 M2 PO (12:04)
[2018-01-22 20:00] VITALS: BP 117/64
[2018-01-23 05:22] LABS: ALBUMIN 2.9 g/dL (3.4-5.0); CALCIUM 9.1 mg/dL (8.5-10.1); CREATININE 0.7 mg/dL (0.6-1.0)
[2018-01-23 07:50] VITALS: BP 111/62
[2018-01-23 07:57] LABS: HEMATOCRIT 35.4 % (37.0-47.0); HEMOGLOBIN 12.1 gm/dL (12.0-15.0); MCH 28.9 pg (26.0-34.0); MCHC 34.1 g/dL (28.0-37.0); MCV 84.6 fL (80.0-100.0); RBC 4.19 mil/uL (4.20-5.00); RDW 15.8 % (10.5-14.5); WBC 3.7 thou/uL (4.0-11.0)
[2018-01-23 08:41] LABS: INR 1.2
[2018-01-23 12:58] VITALS: BP 111/62
[2018-01-23 14:39] VITALS: BP 111/62
[2018-01-23 20:25] VITALS: BP 117/67
[2018-01-24 07:08] VITALS: BP 112/47
[2018-01-24 19:31] VITALS: BP 121/67
[2018-01-25 08:50] VITALS: BP 122/58
[2018-01-25 20:00] VITALS: BP 122/64
[2018-01-26 07:58] VITALS: BP 119/59
[2018-01-26 20:00] VITALS: BP 119/60
[2018-01-27 07:10] VITALS: BP 115/57
[2018-01-27 19:46] VITALS: BP 120/58
[2018-01-28 07:10] VITALS: BP 126/74
[2018-01-28] MEDS ORDERED: NORCO 5-325 TA1 EACH PO (15:59)
[2018-01-28] MEDS ORDERED: SENNA8.6 MG PO (16:00)
[2018-01-28] MEDS ORDERED: MIRALAX17 GM PO (16:00)
[2018-01-28] MEDS ORDERED: BISACODYL SUPP10 MG RECTAL (16:01)
[2018-01-28 17:00] LABS: URINE BILIRUBIN NEGATIVE (Negative); URINE BLOOD NEGATIVE (Negative); URINE CLARITY CLEAR; URINE COLOR YELLOW; URINE GLUCOSE-RANDOM* NEGATIVE (Negative); URINE KETONES NEGATIVE (Negative); URINE NITRITE-REFLEX NEGATIVE (Negative); URINE PROTEIN (DIPSTICK) NEGATIVE (Negative); URINE SPECIFIC GRAVITY <= 1.005 (1.005-1.035)
[2018-01-28 17:01] LABS: URINE LEUKOCYTES-REFLEX 2+ (Negative)
[2018-01-28 17:14] LABS: BACTERIA-REFLEX None Seen /HPF (None Seen); CASTS None Seen /LPF (None Seen); CRYSTALS None Seen /LPF (None Seen); SQUAMOUS 4-10 Moderate /LPF (0-3); URINE RBC 3-10 Few /HPF (0-2); URINE WBC-REFLEX 6-15 Few /HPF (0-5); YEAST-REFLEX Present (None Seen)
== END 2018-01-28 17:38 | DRG 515 ==
LOC: ER 10:11 → SICU 11:37 → EROBS 11:37 → 4E 12:32 → SICU 20:45
PROVIDERS: Hospitalist; Physician Assistant; Radiology Vascular & Interventional Radiology; Registered Nurse
DX: S32.019A Unspecified fracture of first lumbar vertebra, initial encounter for closed fracture (principal); E43 Unspecified severe protein-calorie malnutrition; I10 Essential (primary) hypertension; E78.00 Pure hypercholesterolemia, unspecified; H40.9 Unspecified glaucoma; I48.91 Unspecified atrial fibrillation; J44.9 Chronic obstructive pulmonary disease, unspecified; K59.00 Constipation, unspecified; W18.30XA Fall on same level, unspecified, initial encounter; Y93.89 Activity, other specified; Y92.89 Other specified places as the place of occurrence of the external cause; Y99.8 Other external cause status; Z95.0 Presence of cardiac pacemaker; Z87.81 Personal history of (healed) traumatic fracture; Z85.72 Personal history of non-Hodgkin lymphomas; Z79.899 Other long term (current) drug therapy; Z92.21 Personal history of antineoplastic chemotherapy; Z82.49 Family history of ischemic heart disease and other diseases of the circulatory system; Z80.1 Family history of malignant neoplasm of trachea, bronchus and lung
CPT/HCPCS: 15002

== ENCOUNTER 2018-03-05 08:29 | Inpatient (IN) | payer OTHER, BC ==
[~2018-03-05] VITALS: Ht 167.6 cm; Wt 66.5 kg
--- NOTE | ~2018-03-05 | HC ---
[facility] [place] [address] CONSULTATION Name: JEREMY GAFFNEY Room #: 423-1 ADM IN M.R.#: [id number] Admission: 03/05/18 Attend Phys: Jeremie Borrego MD Discharge: Date of : 37 Report #: [id number] THIS REPORT FOR: //name// CC: Kenrick De Leon MD REASON FOR CONSULTATION: History of lymphoma and neutropenia on admit. HISTORY OF PRESENT ILLNESS: The patient is a very pleasant 82-year-old female, who I first met back in 06/2017. 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 She had presented with cytopenias, and at that time, has hemoglobin less than 8, platelets that were slightly low and a white count that was slightly low. She received one cycle of Rituxan, Cytoxan, vincristine and prednisone with great improvement of blood counts and then continued with rituximab monthly for 5 months. We were going to consider maintenance and received, I believe, one dose was due again yesterday. As an outpatient, about 2-3 days prior to admission, the patient had without trauma noted some severe onset of low back pain below belt level. On CAT scan here, this appears to be a new compression fracture about L3. Note that she did have previous kyphoplasty, I believe, 2 levels above this. She also was found to have bacteria in her urine and was thought to be UTI. There are current plans for kyphoplasty on Friday. Note that the recent CAT scan did not show any developing adenopathy. It did show splenomegaly at 16 cm. Note that this was measured at 20 cm back in June and had been present since 2012 to a lesser degree. The patient states that she had not noticed any new skin rash, except for dry skin. She had not any fevers or chills. Had not any new arm or leg swelling, had not had the back pain and had been getting stronger with home health until about 3 days ago when she had worsening pain. PAST MEDICAL HISTORY: Past history is notable for history of marginal zone lymphoma from 06/2017. Status post R-CHOP x 1 and rituximab with maintenance Rituxan recently given, with great improvement in her cytopenias compared to initial diagnosis. Also, a history of B12 deficiency, tricuspid regurgitation with an EF of 60% to 65%, history of atrial fibrillation, hypertension, hyperlipidemia, cardiac pacemaker in situ and COPD. MEDICATIONS: Medications at this time in the hospital, currently include diltiazem CD 300 mg daily, furosemide 40 mg daily, potassium chloride 40 [place] [address] CONSULTATION Name: JEREMY GAFFNEY Room #: 423-1 ADM IN M.R.#: [id number] Admission: 03/05/18 Attend Phys: Jeremie Borrego MD Discharge: Date of : 37 Report #: [id number], brimonidine tartrate eyedrops daily, digoxin 0.125 daily, ceftriaxone 1 gram q.24h. IV, pantoprazole 40 daily, bisacodyl 10 at bedtime, docusate 100 b.i.d., timolol eyedrops b.i.d., MiraLax 17 grams b.i.d., orphenadrine citrate 100 mg b.i.d. p.r.n., diclofenac topically q.i.d., hydrocodone p.r.n., nitroglycerin 0.4 mg sublingual p.r.n. and Zofran p.r.n. LABORATORY DATA: Lab work here shows normal electrolytes with a BUN of 19, creatinine 0.7, calcium 8.8. Liver functions, albumin not done. White count 1.3; note that earlier in January, it had been 3.7; hemoglobin 13.8 and again back in June, it had been around 6.2 and 7.2. MCV 85.4 and platelets 224,000; back in June, they had been around 119-120 range. Differential today has an ANC of 0.2; back in January, it had been 2.7. U/A here had nitrite positive and 6-15 and greater than 30 . Culture pending. PHYSICAL EXAMINATION: GENERAL: The patient appears her stated age. VITAL SIGNS: Height is 5 feet 6, 167.6 cm and weight 146.6 pounds or 66.5 kilograms. Blood pressure 116/62 lying down, O2 saturation 99%, respirations 16, pulse 59 and temperature 98.7. MOOD: The patient is alert and tired, but pleasant. NEUROLOGIC: Speech and thought pattern appear to be normal. She is moving arms. HEENT: Face is symmetrical. LUNGS: Clear, symmetric expansion. HEART: Appears to be regular rate. There may be a slight tricuspid murmur. EXTREMITIES: Without clubbing, cyanosis. There may be some mild edema in her legs. ABDOMEN: Slightly obese. No masses. NECK: No palpably enlarged lymph nodes in the supraclavicular, cervical, axillary or inguinal region. ASSESSMENT AND PLAN: 1. Marginal zone lymphoma clinically responded with great improvement in cytopenias. We will restart rituximab as outpatient. 2. Neutropenia. We will repeat CBC. If persists, we will have neutropenic precautions. I doubt this is related to cancer progression. Given the maintenance of hemoglobin and platelet count and abrupt drop, it could be medication related or margination. 3. Urinary tract infection. Continues with antibiotics. 4. Compression fracture at L3. No plans for kyphoplasty/vertebroplasty on Friday. 5. Atrial fibrillation. Continue diltiazem and digoxin. 6. History of cardiac irregularity, has cardiac pacemaker. 7. Chronic obstructive pulmonary disease, inhalers as needed. 8. Glaucoma, eyedrops as needed. 9. History of esophagitis and gastritis. Continue proton pump inhibitors. [facility] [address] [place] [address] CONSULTATION Name: JEREMY GAFFNEY Room #: 423-1 [facility] IN .R.#: [id number] Admission: 03/05/18 Attend Phys: Jeremie Borrego MD Discharge: Date of : 37 Report #: [id number] 10. History of B12 deficiency. Consider/continuing B12 replacement. 11. Hyperlipidemia, statin as outpatient. 12. Hypertension. Medicines per others. We will follow with you. <ELECTRONICALLY SIGNED> By: Rafael Red MD 03/09/18 0811 0756 1116 Rafael Red MD /marcos
--- NOTE | ~2018-03-05 | HC ---
[facility] [place] [address] CONSULTATION Name: JEREMY GAFFNEY Room #: 423-1 ADM IN M.R.#: [id number] Admission: 03/05/18 Attend Phys: Jeremie Borrego MD Discharge: Date of : 37 Report #: [id number] THIS REPORT FOR: //name// CC: Jeremie De Leon DATE OF SERVICE: 03/08/2018 SUBJECTIVE: The patient has complaints of constipation. Does not have fever or chills. OBJECTIVE: VITAL SIGNS: Blood pressure 117/61, heart rate is 64, temperature 98.1. HEENT: Does not reveal thrush. NECK: Supple. HEART: Normal S1, S2. ABDOMEN: Nontender. No masses palpated. LABORATORY DATA: White count 1.3. Hemoglobin 13.5, platelets 221, neutrophils 23%. ASSESSMENT AND PLAN: 1. Leukopenia. The patient has been neutropenic. She does not have any fevers. I recommend to consider neutropenic precautions. We will check CBC in the morning. 2. Constipation. Continue bowel regimen. 3. History of non-Hodgkin lymphoma. No evidence of recurrence of disease. Per Dr. Red, the patient is on maintenance Rituxan. By: [id number] Victorina Malone MD /nt
[~2018-03-05 08:29] MED LIST changes: +BISACODYL SUPP10 MG RECTAL; +MIRALAX17 GM PO; +SENNA8.6 MG PO
[2018-03-05 08:30] VITALS: BP 134/68
[2018-03-05] MEDS ORDERED: DILTIAZEM ER360 MG PO (08:33)
[2018-03-05 09:37] LABS: HEMOGLOBIN 13.8 gm/dL (12.0-15.0); MCH 28.8 pg (26.0-34.0)
[2018-03-05 09:39] LABS: MCHC 33.7 g/dL (28.0-37.0); MCV 85.4 fL (80.0-100.0); PLATELET COUNT 224 thou/uL (150-400); RBC 4.79 mil/uL (4.20-5.00); RDW 15.9 % (10.5-14.5)
[2018-03-05 09:40] LABS: URINE BILIRUBIN NEGATIVE (Negative); URINE BLOOD NEGATIVE (Negative); URINE CLARITY CLEAR; URINE COLOR YELLOW; URINE GLUCOSE-RANDOM* NEGATIVE (Negative); URINE KETONES NEGATIVE (Negative); URINE PROTEIN (DIPSTICK) NEGATIVE (Negative); URINE SPECIFIC GRAVITY 1.015 (1.005-1.035)
[2018-03-05 09:41] LABS: WBC 1.3 thou/uL (4.0-11.0)
[2018-03-05 09:42] LABS: CALCIUM 8.8 mg/dL (8.5-10.1); CREATININE 0.7 mg/dL (0.6-1.0); POTASSIUM 4.1 mmol/L (3.5-5.1)
[2018-03-05 09:43] LABS: URINE LEUKOCYTES-REFLEX TRACE (Negative); URINE NITRITE-REFLEX POSITIVE (Negative)
[2018-03-05 09:51] LABS: SQUAMOUS 0-3 Few /LPF (0-3)
[2018-03-05 09:52] LABS: BACTERIA-REFLEX >30 Many /HPF (None Seen); CASTS None Seen /LPF (None Seen); CRYSTALS None Seen /LPF (None Seen); URINE RBC None Seen /HPF (0-2); URINE WBC-REFLEX 6-15 Few /HPF (0-5)
[2018-03-05 10:08] LABS: ABSOLUTE NEUTROPHILS 0.2 thou/uL (1.4-8.2); PLATELET ESTIMATE NORMAL
[2018-03-05 10:45] VITALS: BP 113/41
[2018-03-05 11:15] VITALS: BP 113/37
[2018-03-05 17:05] VITALS: BP 134/69
[2018-03-05 20:30] VITALS: BP 122/72
[2018-03-06 05:00] VITALS: BP 116/62
[2018-03-06 07:54] VITALS: BP 125/53
[2018-03-06 08:35] LABS: HEMATOCRIT 39.4 % (37.0-47.0); HEMOGLOBIN 13.5 gm/dL (12.0-15.0); MCHC 34.2 g/dL (28.0-37.0); MCV 84.8 fL (80.0-100.0); PLATELET COUNT 221 thou/uL (150-400); RBC 4.64 mil/uL (4.20-5.00); RDW 15.5 % (10.5-14.5)
[2018-03-06 08:43] LABS: WBC 1.3 thou/uL (4.0-11.0)
[2018-03-06 09:39] LABS: ABSOLUTE NEUTROPHILS 0.3 thou/uL (1.4-8.2)
[2018-03-06 09:44] LABS: ATYPICAL LYMPHS 8 %
[2018-03-06 09:45] LABS: PLATELET ESTIMATE NORMAL
[2018-03-06 09:46] LABS: ANISOCYTOSIS SLIGHT
[2018-03-06 16:27] VITALS: BP 112/57
[2018-03-06 20:00] VITALS: BP 112/48
[2018-03-07 06:06] VITALS: BP 114/50
[2018-03-07 07:21] VITALS: BP 110/52
[2018-03-07 16:44] VITALS: BP 119/56
[2018-03-07 19:15] VITALS: BP 109/59
[2018-03-08 03:30] VITALS: BP 117/61
[2018-03-08 11:57] VITALS: BP 97/67
[2018-03-08 15:34] VITALS: BP 124/61
[2018-03-08 20:10] VITALS: BP 127/75
[2018-03-09 03:45] VITALS: BP 126/67
[2018-03-09 06:22] LABS: HEMATOCRIT 39.1 % (37.0-47.0); HEMOGLOBIN 13.5 gm/dL (12.0-15.0); MCH 29.2 pg (26.0-34.0); MCHC 34.5 g/dL (28.0-37.0); MCV 84.7 fL (80.0-100.0); PLATELET COUNT 216 thou/uL (150-400); RBC 4.62 mil/uL (4.20-5.00); RDW 15.9 % (10.5-14.5)
[2018-03-09 08:36] LABS: ABSOLUTE NEUTROPHILS 0.8 thou/uL (1.4-8.2); ANISOCYTOSIS SLIGHT; LARGE PLATELETS OCCASIONAL; POIKILOCYTOSIS SLIGHT
[2018-03-09 08:40] VITALS: BP 108/43
[2018-03-09 20:14] VITALS: BP 115/54
[2018-03-10 04:16] VITALS: BP 107/47
[2018-03-10 05:55] LABS: HEMATOCRIT 37.6 % (37.0-47.0); HEMOGLOBIN 12.9 gm/dL (12.0-15.0); MCH 28.8 pg (26.0-34.0); MCHC 34.2 g/dL (28.0-37.0); MCV 84.2 fL (80.0-100.0); PLATELET COUNT 202 thou/uL (150-400); RBC 4.47 mil/uL (4.20-5.00); RDW 15.4 % (10.5-14.5); WBC 2.2 thou/uL (4.0-11.0)
[2018-03-10 05:56] LABS: CALCIUM 8.7 mg/dL (8.5-10.1); CREATININE 0.7 mg/dL (0.6-1.0); MAGNESIUM 1.9 mg/dL (1.8-2.4); POTASSIUM 4.1 mmol/L (3.5-5.1)
[2018-03-10 08:56] VITALS: BP 101/46
[2018-03-10 10:14] LABS: ABSOLUTE NEUTROPHILS 0.8 thou/uL (1.4-8.2); ATYPICAL LYMPHS 3 %
[2018-03-10 10:15] LABS: POIKILOCYTOSIS SLIGHT
[2018-03-10 10:16] LABS: ANISOCYTOSIS SLIGHT; LARGE PLATELETS OCCASIONAL; OVALOCYTES FEW
[2018-03-10] MEDS ORDERED: KEFLEX500 M1 PO (12:44)
== END 2018-03-10 15:21 | DRG 515 ==
LOC: ER 08:29 → EROBS 10:22 → 4E 10:22
PROVIDERS: Emergency Medicine; Internal Medicine; Internal Medicine Hematology & Oncology
PROC: 0QS03ZZ Reposition Lumbar Vertebra, Percutaneous Approach (ICD-10-PCS; principal; 2018-03-09)
PROC: 0QU03JZ Supplement Lumbar Vertebra with Synthetic Substitute, Percutaneous Approach (ICD-10-PCS; principal; 2018-03-09)
DX: M48.56XA Collapsed vertebra, not elsewhere classified, lumbar region, initial encounter for fracture (principal); E43 Unspecified severe protein-calorie malnutrition; N39.0 Urinary tract infection, site not specified; I10 Essential (primary) hypertension; E78.00 Pure hypercholesterolemia, unspecified; H40.9 Unspecified glaucoma; K59.00 Constipation, unspecified; D70.9 Neutropenia, unspecified; I48.91 Unspecified atrial fibrillation; J44.9 Chronic obstructive pulmonary disease, unspecified; B96.20 Unspecified Escherichia coli [E. coli] as the cause of diseases classified elsewhere; Z85.6 Personal history of leukemia; Z87.81 Personal history of (healed) traumatic fracture; Z99.81 Dependence on supplemental oxygen; Z68.23 Body mass index [BMI] 23.0-23.9, adult; Z95.0 Presence of cardiac pacemaker; Z79.899 Other long term (current) drug therapy; Z87.891 Personal history of nicotine dependence; Z82.49 Family history of ischemic heart disease and other diseases of the circulatory system; Z80.8 Family history of malignant neoplasm of other organs or systems
CPT/HCPCS: 10183

== ENCOUNTER 2018-04-02 14:32 | Inpatient (IN) | payer OTHER, BC ==
[~2018-04-02] VITALS: Ht 167.6 cm; Wt 69.9 kg
[2018-04-02 14:32] VITALS: BP 113/66
[~2018-04-02 14:32] MED LIST changes: +DILTIAZEM ER360 MG PO; +KEFLEX500 M1 PO
[2018-04-02 15:15] LABS: HEMATOCRIT 40.5 % (37.0-47.0); HEMOGLOBIN 13.9 gm/dL (12.0-15.0); MCH 29.2 pg (26.0-34.0); MCHC 34.3 g/dL (28.0-37.0); MCV 85.2 fL (80.0-100.0); PLATELET COUNT 264 thou/uL (150-400); RBC 4.75 mil/uL (4.20-5.00); RDW 15.4 % (10.5-14.5)
[2018-04-02 15:25] LABS: CALCIUM 9.4 mg/dL (8.5-10.1); CREATININE 0.6 mg/dL (0.6-1.0)
[2018-04-02 15:40] LABS: ABSOLUTE NEUTROPHILS 3.6 thou/uL (1.4-8.2); ANISOCYTOSIS 1+
[2018-04-02 15:41] LABS: LARGE PLATELETS OCCASIONAL; POLYCHROMASIA OCCASIONAL
[2018-04-02 16:09] LABS: URINE BILIRUBIN NEGATIVE (Negative); URINE BLOOD NEGATIVE (Negative); URINE CLARITY CLEAR; URINE COLOR YELLOW; URINE GLUCOSE-RANDOM* NEGATIVE (Negative); URINE KETONES NEGATIVE (Negative); URINE LEUKOCYTES NEGATIVE (Negative); URINE NITRITE NEGATIVE (Negative); URINE PROTEIN (DIPSTICK) NEGATIVE (Negative)
[2018-04-02 16:56] VITALS: BP 125/57
[2018-04-02 17:36] VITALS: BP 113/52
[2018-04-02 20:50] VITALS: BP 90/54
[2018-04-03 03:51] VITALS: BP 90/54
[2018-04-03 05:57] LABS: HEMATOCRIT 36.6 % (37.0-47.0); HEMOGLOBIN 12.4 gm/dL (12.0-15.0); MCHC 33.9 g/dL (28.0-37.0); MCV 85.8 fL (80.0-100.0); RBC 4.26 mil/uL (4.20-5.00); RDW 15.2 % (10.5-14.5); WBC 3.9 thou/uL (4.0-11.0)
[2018-04-03 06:05] LABS: CALCIUM 8.8 mg/dL (8.5-10.1); CREATININE 0.6 mg/dL (0.6-1.0); POTASSIUM 3.8 mmol/L (3.5-5.1)
[2018-04-03 08:00] VITALS: BP 121/45
[2018-04-03 16:00] VITALS: BP 150/69
[2018-04-03 19:28] VITALS: BP 136/61
[2018-04-04 04:08] VITALS: BP 136/73
[2018-04-04 08:30] VITALS: BP 139/62
[2018-04-04 16:00] VITALS: BP 121/49
[2018-04-04 18:35] VITALS: BP 125/51
[2018-04-05 08:10] VITALS: BP 124/61
[2018-04-05 19:47] VITALS: BP 116/57
[2018-04-06 07:35] VITALS: BP 128/55
[2018-04-06 08:25] LABS: HEMOGLOBIN 13.5 gm/dL (12.0-15.0)
[2018-04-06 08:26] LABS: HEMATOCRIT 40.3 % (37.0-47.0); MCHC 33.4 g/dL (28.0-37.0); MCV 86.8 fL (80.0-100.0); RBC 4.65 mil/uL (4.20-5.00); RDW 15.4 % (10.5-14.5)
[2018-04-06 08:35] LABS: PROTIME 10.6 Seconds (9.3-11.4)
[2018-04-06 08:44] LABS: CALCIUM 8.7 mg/dL (8.5-10.1); CREATININE 0.6 mg/dL (0.6-1.0); PHOSPHORUS 4.3 mg/dL (2.5-4.9)
[2018-04-06 08:50] LABS: PLATELET COUNT 278 thou/uL (150-400); PLATELET ESTIMATE NORMAL
[2018-04-06 08:51] LABS: ABSOLUTE NEUTROPHILS 4.7 thou/uL (1.4-8.2); WBC 7.1 thou/uL (4.0-11.0)
[2018-04-06 09:11] LABS: TSH 1.781 uIU/mL (0.358-3.740)
[2018-04-06 10:26] LABS: FOLIC ACID 30.6 ng/mL (8.6-58.9)
[2018-04-06 13:15] VITALS: BP 128/55
[2018-04-06 13:28] LABS: ALBUMIN 3.1 g/dL (3.4-5.0); CALCIUM 8.9 mg/dL (8.5-10.1); CREATININE 0.7 mg/dL (0.6-1.0); MAGNESIUM 2.1 mg/dL (1.8-2.4); TOTAL BILIRUBIN 0.7 mg/dL (<0.1-1.0); TOTAL PROTEIN 6.4 g/dL (6.4-8.2)
[2018-04-06 13:29] LABS: POTASSIUM 4.6 mmol/L (3.5-5.1)
[2018-04-06 19:30] VITALS: BP 128/61
[2018-04-07 07:07] LABS: ABSOLUTE NEUTROPHILS 2.4 thou/uL (1.4-8.2); EOSINOPHILS 5.7 % (0.0-3.0); HEMATOCRIT 36.9 % (37.0-47.0); HEMOGLOBIN 12.6 gm/dL (12.0-15.0); LYMPHOCYTES 21.1 % (24.0-44.0); MCH 29.2 pg (26.0-34.0); MCHC 34.2 g/dL (28.0-37.0); MCV 85.3 fL (80.0-100.0); MONOCYTES 10.4 % (1.0-8.0); PLATELET COUNT 227 thou/uL (150-400); POLYS 61.8 % (36.0-66.0); RBC 4.33 mil/uL (4.20-5.00); RDW 14.6 % (10.5-14.5); WBC 3.9 thou/uL (4.0-11.0)
[2018-04-07 07:25] LABS: ALBUMIN 2.9 g/dL (3.4-5.0); CALCIUM 8.7 mg/dL (8.5-10.1); CREATININE 0.6 mg/dL (0.6-1.0); POTASSIUM 3.8 mmol/L (3.5-5.1); TOTAL BILIRUBIN 0.9 mg/dL (<0.1-1.0)
[2018-04-07 08:07] VITALS: BP 133/66
[2018-04-07 20:00] VITALS: BP 124/52
[2018-04-08 07:25] VITALS: BP 109/53
[2018-04-08] MEDS ORDERED: TRAMADOL 50 MG50 MG PO (12:45)
[2018-04-08] MEDS ORDERED: NORCO 5-325 TA1 EACH PO (12:45)
[2018-04-08] MEDS ORDERED: ULTRACET TABLET1 TAB PO (12:55)
[2018-04-08] MEDS ORDERED: CALCIUM 500 +1 EAC5 PO (13:01)
== END 2018-04-08 13:52 | DRG 515 ==
LOC: ER 14:32 → 4W 15:34 → EROBS 15:34 → SICU 15:34 → 4W 16:58 → SICU 04-04 18:26
PROVIDERS: Emergency Medicine; Hospitalist
PROC: 0QU03JZ Supplement Lumbar Vertebra with Synthetic Substitute, Percutaneous Approach (ICD-10-PCS; principal; 2018-04-07)
PROC: 0QS03ZZ Reposition Lumbar Vertebra, Percutaneous Approach (ICD-10-PCS; principal; 2018-04-07)
PROC: 0PS43ZZ Reposition Thoracic Vertebra, Percutaneous Approach (ICD-10-PCS; principal; 2018-04-07)
PROC: 0PU43JZ Supplement Thoracic Vertebra with Synthetic Substitute, Percutaneous Approach (ICD-10-PCS; principal; 2018-04-07)
DX: M48.54XA Collapsed vertebra, not elsewhere classified, thoracic region, initial encounter for fracture (principal); E43 Unspecified severe protein-calorie malnutrition; C91.10 Chronic lymphocytic leukemia of B-cell type not having achieved remission; G89.29 Other chronic pain; M54.5 Low back pain; Z74.09 Other reduced mobility; I10 Essential (primary) hypertension; E78.00 Pure hypercholesterolemia, unspecified; J44.9 Chronic obstructive pulmonary disease, unspecified; I48.91 Unspecified atrial fibrillation; M81.0 Age-related osteoporosis without current pathological fracture; G47.33 Obstructive sleep apnea (adult) (pediatric); G47.00 Insomnia, unspecified; K59.00 Constipation, unspecified; H40.9 Unspecified glaucoma; Z79.1 Long term (current) use of non-steroidal anti-inflammatories (NSAID); Z95.0 Presence of cardiac pacemaker; Z79.899 Other long term (current) drug therapy; Z79.2 Long term (current) use of antibiotics; Z68.24 Body mass index [BMI] 24.0-24.9, adult
CPT/HCPCS: 10040; 15002

== ENCOUNTER 2019-01-26 12:44 | Inpatient (IN) | payer OTHER, BC ==
[~2019-01-26] VITALS: Ht 167.6 cm; Wt 78.9 kg
[~2019-01-26 12:44] MED LIST changes: +CALCIUM 500 +1 EAC5 PO; +TRAMADOL 50 MG50 MG PO; +ULTRACET TABLET1 TAB PO
[2019-01-26 12:45] VITALS: BP 139/66
[2019-01-26 14:34] LABS: URINE BILIRUBIN NEGATIVE (Negative); URINE BLOOD NEGATIVE (Negative); URINE CLARITY CLEAR; URINE COLOR YELLOW; URINE GLUCOSE-RANDOM* NEGATIVE (Negative); URINE KETONES NEGATIVE (Negative); URINE LEUKOCYTES-REFLEX TRACE (Negative); URINE NITRITE-REFLEX NEGATIVE (Negative); URINE PROTEIN (DIPSTICK) NEGATIVE (Negative); URINE SPECIFIC GRAVITY 1.015 (1.005-1.035)
[2019-01-26] MEDS ORDERED: KLOR-CON 1010 MEQ (14:51)
[2019-01-26] MEDS ORDERED: TYLENOL PM EX-1 EACH PO (14:53)
--- NOTE | 2019-01-26 17:50 | NUR ---
ATTEMPTED 2 TIMES TO GET AN IV WITHOUT SUCCESS.
[2019-01-26 17:53] VITALS: BP 136/60
[2019-01-26 19:12] VITALS: BP 133/65
[2019-01-26 21:00] VITALS: BP 142/57
[2019-01-26 22:11] LABS: HEMOGLOBIN 13.9 gm/dL (12.0-15.0); MCH 29.3 pg (26.0-34.0); MCHC 33.8 g/dL (28.0-37.0); MCV 86.6 fL (80.0-100.0); RBC 4.74 mil/uL (4.20-5.00); RDW 14.3 % (10.5-14.5); WBC 6.7 thou/uL (4.0-11.0)
[2019-01-26 22:21] LABS: CALCIUM 8.9 mg/dL (8.5-10.1); CREATININE 0.8 mg/dL (0.6-1.0); MAGNESIUM 2.1 mg/dL (1.8-2.4); POTASSIUM 3.9 mmol/L (3.5-5.1)
--- NOTE | 2019-01-27 02:14 | NUR ---
PATIENT ARRIVED AT 1900 PER CART FROM ED. IS ALERT X 4. SKIN WARM AND DRY. RESP EVEN AND UNLABORED. COMPLAINING OF BACK PAIN, HAD BEEN CONSTIPATED AND STRAINED ON TOLIET SO MUCH HER BACK STARTED HURTING. PAIN MEDICATION GIVEN IN ED. NEW IV IN RIGHT AC FLUSHESW ELL. NEW IV FLUIDS OF NS STARTED PER ORDERS. ALL X-RAY REMAIN OK WITH NO NEW FRACTURES. LUNGS CTA. BOTTOM WAS SLIGHTLY RED AND RAW LOOKING . UP TO BSC WITH 1 PERSO ASSIST. USES WALKER AT HOME . TAKING HEART HEALTHY DIET.HAS SOME BRUISING ON HER ARMS BILATERALLY. USES 02 AT 2LNC HERE AND AT HOME. BED ALARM ON WITH SCD'S. SON WILL BRING IN COPIES OF HER ADVANCE DIRECTIVE. CONT PLAN OF CARE. PAIN MEDICATION GIVEN PO AND HAS BEEN SLEEPING EVER SINCE.
[2019-01-27 04:30] VITALS: BP 124/86
--- NOTE | 2019-01-27 04:56 | NUR ---
Patient also getting 02 at 2lnc. Denies any SOA. Pain med given with good relief to back.
[2019-01-27 06:29] LABS: HEMATOCRIT 38.1 % (37.0-47.0); MCH 29.6 pg (26.0-34.0); MCHC 34.1 g/dL (28.0-37.0); RBC 4.37 mil/uL (4.20-5.00); RDW 14.8 % (10.5-14.5); WBC 5.2 thou/uL (4.0-11.0)
[2019-01-27 06:39] LABS: CALCIUM 8.7 mg/dL (8.5-10.1); CREATININE 0.8 mg/dL (0.6-1.0); POTASSIUM 3.7 mmol/L (3.5-5.1)
[2019-01-27 07:08] VITALS: BP 143/56
--- NOTE | 2019-01-27 10:09 | NUR ---
PT A&OX4, YSLETA DEL SUR, AMBULATES WITH ASSIT X1 AND WALKER. IV INTACT IN R AC INFUSING FLUIDS W/O COMPS. NO C/O ABD PAIN THOUGH HAS NOT HAD A BM IN 5 DAYS, SCHED. SOFTENER AND LAXATIVE GIVEN AND NOTIFIED EMMANUEL FUENTES WHO ORDERED SUPP. PRN. WILL CONT. TO MONITOR.
[2019-01-27] MEDS ORDERED: CALCIUM 500 +1 EAC5 PO (13:18)
[2019-01-27] MEDS ORDERED: COLACE100 MG PO (13:21)
[2019-01-27] MEDS ORDERED: POTASSIUM20 PO (13:22)
[2019-01-27] MEDS ORDERED: DILTIAZEM ER180 MG PO (13:25)
[2019-01-27 13:27] VITALS: BP 141/61
--- NOTE | 2019-01-27 13:39 | NUR ---
FAXED REFERRAL TO [facility] SPOKE WITH [facility] IN ADM. SARABJIT RECEIVED REFERRAL AND WILL REVIEW. ANTICIPATE DC 01/28. DCP TO FOLLOW.
--- NOTE | 2019-01-27 13:46 | NUR ---
PT TRANSFERED TO [facility].
--- NOTE | 2019-01-27 14:05 | NUR ---
Case opened to follow for dc planning support. Master Fisher visited with the pt at bedside. She is a&ox4 and indicates that she lives alone in her own home. There are 2 steps to enter and her son takes her to and from appointments. She has groceries delievered and has bath and homemaker support through [facility] private duty 1 x wkly. She has had HH per [facility] and went to SNF at [facility] of OP in the past. Her goal is to return home at [place]. She is receptive to HH again with [facility] if needed but does not feel she will need a snf stay. She has home o2 for nocturnal use through [facility]. She is hoping with pain control her mobility will be safe to return home. Her son is very supportive and involved. [facility] can accept if hh needed at [place]. Will follow.
--- NOTE | 2019-01-27 15:07 | NUR ---
PATIENT TRANSFERRED FROM [facility], REPORT FROM SHELL/RN. PAIENT ALERT AND ORIENTED X 4, KAKE, NO HEARING AIDS. PAIENT C/O PAIN WITH BACK AREA, PATIENT HYDROCODONE 1 TABLET X 1. PATIENT UP WITH ASSIST X 1 WITH WALKER. PATIENT HAS LIDOCAINE TO LOW BACK AREA APPLIED PRIOR TO TRANSFER. PATIENT HAS RIGHT AC IV IN PLACE, FLUSHED WITH NS AND REMAINS PATENT, IV FLUIDS D/C THIS AM. WILL CONTINUE TO MONITOR.
[2019-01-27 20:55] VITALS: BP 132/80
--- NOTE | 2019-01-28 04:41 | NUR ---
Assumed pt care at 1900. Pt A/OX4,[place] and wears no hearing aids. Up with minimal assist with RW to BR.VSS. C/o pain to lower back especially with movement. Pt did notify this nurse she had spoken with the Dr. regarding pain meds,she does not want to take narcotics d/t constipation. CORRECTIONAL FACILITY NURSE Lulu notified at HS and order given for Tramadol 50mg Q6 PRN and to dc Hydrocodone,pt updated and appreciated. Medicated with Tramadol before going to bed and verbalized feeling reliefed. Pt resting with no distress with O2 @2L/NC. Pt's bowels moved at HS as well and she felt reliefed. Fall precautions in place,bed alarm on and call light within reach.Will continue to monitor pt.
[2019-01-28 06:45] LABS: HEMATOCRIT 40.7 % (37.0-47.0); HEMOGLOBIN 13.9 gm/dL (12.0-15.0); MCH 29.3 pg (26.0-34.0); MCHC 34.1 g/dL (28.0-37.0); MCV 85.8 fL (80.0-100.0); RBC 4.74 mil/uL (4.20-5.00); RDW 14.4 % (10.5-14.5); WBC 5.7 thou/uL (4.0-11.0)
[2019-01-28 07:02] LABS: CALCIUM 9.5 mg/dL (8.5-10.1); CREATININE 0.7 mg/dL (0.6-1.0); POTASSIUM 4.2 mmol/L (3.5-5.1)
[2019-01-28 07:45] VITALS: BP 155/85
[2019-01-28] MEDS ORDERED: CYCLOBENZAPRINE5 MG PO (08:07)
[2019-01-28] MEDS ORDERED: PREDNISONE 20 M20 MG PO (08:08)
[2019-01-28 09:28] VITALS: BP 155/85
--- NOTE | 2019-01-28 10:15 | NUR ---
DISCHARGE ORDERS RECEVIED. PATIENT DISCHARGING TO HOME WITH [facility]. DISCHARGE/HH AND DISCHARGE SUMMARY FAXED TO [facility]. [facility] LIAISON, VERIFIED RECEIVED. [facility] TO FACILITATE PTS HH NEEDS.
--- NOTE | 2019-01-28 10:17 | NUR ---
DISCHARGE NOTE: SW reviewed chart and spoke with nursing. Pt is medically stable for discharge home today with [facility]. case planner faxed discharge orders/summary to [facility]. SW met with pt at bedside to provide update and discuss discharge. Pt is aware and agreeable with discharge plan. Pt's son will provide transportation home this afternoon. Pt has home O2 in place at home for noctural O2. Pt's PCP is Dr. Edmund De Leon. Contact info for [facility] placed in pt's discharge summary. No additional SW needs identified at this time, but is available to assist should needs arise.
--- NOTE | 2019-01-28 12:48 | NUR ---
PATIENT CARE WAS ASSUMED AT 0715.PATIENT IS ALERT AND ORIENTED X4.PT IS ABLE TO AMBULATE X1 ASSIST WITH WALKER.PATIENT HAS COMPLAINS OF GOING TO THE BATHROOM SO MUCH.NO PAIN AT THIS TIME.PT WAS GIVEN PAIN MEDS FROM NIGHT NURSE.PATIENT IS VERY TIRED THIS MORNING AND EXPRESSED THAT SHE WANTS TO SLEEP IN.IV IS INTACT, AND SALINE LOCKED.CALL LIGHT, PHONE, AND PERSONAL BELONGINGS ARE WITHIN REACH.
--- NOTE | 2019-01-28 18:45 | NUR ---
PATIENT WAS DISCHARGED TO GO HOME WITH HOME HEALTH.DISCHARGE PAPERWORK WAS GIVEN TO PATIENT.SCRIPTS WERE GIVEN TO PATIENT AND SON.PATIENT HAS NO QUESTIONS OR CONCERNS AT THIS TIME.PATIENT WAS TAKEN OUT TO CAR VIA W/C WITH FAMILY AND LIBRARY TECHNICAL ASSISTANT.PATIENT HAS ALL OF HER BELONGINGS.
== END 2019-01-28 19:12 | disposition home health service (06) | DRG 552 ==
LOC: ER 12:44 → EROBS 16:40 → 4E 16:40 → ENTRNSPT 01-27 12:18 → EDTRNSPTSTS 01-27 12:53 → SICU 01-27 13:26
PROVIDERS: Emergency Medicine; ADMIT Internal Medicine
DX: M54.9 Dorsalgia, unspecified (principal); I10 Essential (primary) hypertension; E78.00 Pure hypercholesterolemia, unspecified; H40.9 Unspecified glaucoma; G89.29 Other chronic pain; K59.00 Constipation, unspecified; Z60.2 Problems related to living alone; J44.9 Chronic obstructive pulmonary disease, unspecified; M62.84 Sarcopenia; N32.89 Other specified disorders of bladder; I48.91 Unspecified atrial fibrillation; Z87.81 Personal history of (healed) traumatic fracture; Z95.0 Presence of cardiac pacemaker; Z82.49 Family history of ischemic heart disease and other diseases of the circulatory system; Z83.6 Family history of other diseases of the respiratory system; Z80.9 Family history of malignant neoplasm, unspecified; Z79.899 Other long term (current) drug therapy
CPT/HCPCS: 10783; 15002

== ENCOUNTER 2019-02-08 08:07 | Inpatient (IN) | payer OTHER, BC ==
[~2019-02-08] VITALS: Ht 167.6 cm; Wt 77.1 kg
[2019-02-08 08:07] VITALS: BP 131/60
[~2019-02-08 08:07] MED LIST changes: +COLACE100 MG PO; +CYCLOBENZAPRINE5 MG PO; +DILTIAZEM ER180 MG PO; +KLOR-CON 1010 MEQ; +POTASSIUM20 PO; +PREDNISONE 20 M20 MG PO; +TYLENOL PM EX-1 EACH PO
[2019-02-08 09:23] LABS: URINE BILIRUBIN NEGATIVE (Negative); URINE BLOOD TRACE (Negative); URINE CLARITY HAZY; URINE COLOR YELLOW; URINE GLUCOSE-RANDOM* NEGATIVE (Negative); URINE KETONES NEGATIVE (Negative); URINE LEUKOCYTES-REFLEX 3+ (Negative); URINE NITRITE-REFLEX POSITIVE (Negative); URINE PROTEIN (DIPSTICK) NEGATIVE (Negative)
[2019-02-08 09:31] LABS: BACTERIA-REFLEX >30 Many /HPF (None Seen); CASTS None Seen /LPF (None Seen); CRYSTALS None Seen /LPF (None Seen); SQUAMOUS 0-3 Few /LPF (0-3); URINE RBC 0-2 Rare /HPF (0-2); URINE WBC-REFLEX >25 Many /HPF (0-5)
[2019-02-08 09:32] LABS: WBC CLUMPS Many (None Seen)
[2019-02-08 09:47] LABS: CREATININE 0.7 mg/dL (0.6-1.0); MAGNESIUM 1.9 mg/dL (1.8-2.4)
[2019-02-08 10:12] LABS: ABSOLUTE NEUTROPHILS 5.5 thou/uL (1.4-8.2); BASOPHILS 0.7 % (0.0-2.0); EOSINOPHILS 1.9 % (0.0-3.0); HEMATOCRIT 43.2 % (37.0-47.0); HEMOGLOBIN 14.4 gm/dL (12.0-15.0); LYMPHOCYTES 8.5 % (24.0-44.0); MCH 29.2 pg (26.0-34.0); MCHC 33.4 g/dL (28.0-37.0); MCV 87.5 fL (80.0-100.0); MONOCYTES 6.2 % (1.0-8.0); PLATELET COUNT 264 thou/uL (150-400); POLYS 82.7 % (36.0-66.0); RBC 4.94 mil/uL (4.20-5.00); RDW 14.8 % (10.5-14.5); WBC 6.7 thou/uL (4.0-11.0)
[2019-02-08 10:38] VITALS: BP 125/62
[2019-02-08 10:46] VITALS: BP 132/60
[2019-02-08 11:00] VITALS: BP 124/58
[2019-02-08 15:00] VITALS: BP 142/51
--- NOTE | 2019-02-08 19:47 | NUR ---
Receiued pt from the ER, wiith a FC intact and drainnig dark yellow urine. Pain medication given, partial relief has been noted. Barrier cream placed on her bottom, rashes noted in her inquinal area and under the pannus informed and showed Dr. Paula. Area was cleaned , jailyn dalton barrier cream was placed.POC followed, pt does have a tendency to forget when last medication was given. Endorsed to the night nurse.
[2019-02-08 20:06] VITALS: BP 169/127
[2019-02-09 03:30] VITALS: BP 119/52
--- NOTE | 2019-02-09 06:47 | NUR ---
Pt. transferred from 4W, rm 463 to [facility], rm 227. Transported in bed w/ asst of nurse and PCT. Transferred from one bed to next by nurse and PCT.Denies pain or discomfort, at this time. No s/s of acute distress noted. 02 intact at 2LNC. Pt. orientated to senior suites/rm 227/call system. AM meds given by 4W nurse, prior to transfer. PO fluids encouraged. Will continue to monitor.
--- NOTE | 2019-02-09 07:40 | NUR ---
PATIENT ABLE TO GET COMFORTABLE AND SLEPT PART OF THE SHIFT. ATIENT IS ALERT BUT EASILY CONFUSED. MAYES IN PLCE DUE TO RETENTION. PATIENT HAS SOME PAIN THAT WAS TREATED WITH MEDICATION. O2 VIA NC AT 2L CONTINUED. PATIENT IS PROGRESSING TOWARDS DC GOALS.
[2019-02-09 08:00] VITALS: BP 135/68
--- NOTE | 2019-02-09 09:18 | NUR ---
PATIENT CARE WAS ASSUMED AT 0715.PATIENT IS AXO X4.MAYES IS IN PLACE.IV IS PATENT AND SALINE LOCKED.PATIENT WAS TAKEN TO MRI.PATIENT COMPLAINED OF PAIN THIS MORNING WHEN SHE WAS MOVED FROM BED TO W/C.PT HAD PAIN MEDS IN THE AM.PT WAS ENCOURAGED TO MOVE WITH ASSISTANCE FROM NURSE.FALL PRECAUTIONS ARE IN PLACE.CALL LIGHT, PHONE, AND PERSONAL BELONGINGS ARE WITHIN REACH.
--- NOTE | 2019-02-09 09:35 | NUR ---
Nutrition: pt admitted with UTI, low back pain-hx compression fracture and sarcopenia. 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 Seen due to dx sarcopenia. Pt reports good appetite prior to admit and no recent weight loss. Did lose 15# with dx of CLL in 2017 but weights have trended up over the past year. Currently up 10# from reported UBW of 160#. RD reviewed protein needs with pt and discussed use of Ensure max, will order BID. Otherwise consider low risk.
--- NOTE | 2019-02-09 13:57 | NUR ---
INITIAL ASSESSMENT: SW reviewed chart and spoke with nursing and attending physician. Pt was admitted from home due to UTI/intractable back pain. PT/OT ordered to evaluatet pt. 5N consulted. Pt was recently discharged home on 01/28 with [facility]. SW met with pt at bedside. Introduced role of SW. Pt is alert/orientated x 4. Pt reports she lives at home alone. Prior to admission, she was using a walker to ambulate and a w/c for long distances. Pt has home O2 in place through [employer] [place]. Pt has [facility] [place] weekly to assist with housekeeping services. Pt's son is supportive and involved in pt's care. SW discussed discharge needs and recommendations. Pt is agreeable with going to [facility] if she is accepted. SW provided SNF list for review as well. Pt has been to [facility] in the past, and would prefer to go there again. SW explained that [facility] has been full for the past several days. Pt verbalized understanding and will review list with family. SW is following to assist as needed with discharge planning.
[2019-02-09 21:09] VITALS: BP 105/50
[2019-02-09 21:34] VITALS: BP 105/50
[2019-02-09 21:42] VITALS: BP 122/70
--- NOTE | 2019-02-10 04:05 | NUR ---
Assumed pt. care at 1900. Pt remains A&Ox3; swallows meds whole w/o difficulty. Glasses noted. Remains cont. bowel; ambulates w/ standby asst and walker; gait steady. [place] cath intact/draining joby colored urine w/o difficulty; no odor/sediment noted. 02 intact at 2LNC. R hand SL noted; flushed w/ NS w/o difficulty. Remains on fall precautions. Pt asleep in bed w/ call light/desired belongings within reach. Bed/chair alarm intact. PO fluids encouraged. Will continue to monitor.
[2019-02-10 09:15] VITALS: BP 109/68
--- NOTE | 2019-02-10 11:54 | NUR ---
SW reviewed chart and spoke with nursing and attending physician. Pt is scheduled to have a kyphoplasty on Friday. Pradaxa is on hold. SW met with pt and son at bedside to provide update and discuss discharge plan. Pt agreeable with SNF placement if needed. SW updated [facility] liaison. [facility] evaluated pt and states pt may be too high level. SW is following to assist as needed with discharge planning.
--- NOTE | 2019-02-10 12:08 | NUR ---
HOSE TUBING BACKER DISCUSSED PATIENT'S CASE WITH DR. EMIL HERNANDEZ THIS DATE. AFTER REVIEWING PATIENT INFORMATION, DR. HERNANDEZ DETERMINED THAT PATIENT DOES NOT MEET CRITERIA FOR ACUTE REHAB. PATIENT DOES NOT HAVE MEDICAL NECESSITY TO SUPPORT ADMISSION. RELAY SHOP SUPERVISOR AND GANTRY CRANE OPERATOR INFORMED.
--- NOTE | 2019-02-10 14:08 | NUR ---
ASSUMED PATIENT AND CARES AT 0715, PATIENT IN BED SLEEP DURING BEDSIDE REPORT, PATIENT REPORTED TO BE A&OX3-4, PATIENT DOUGLAS, PACEMAKER TO LEFT CHEST WALL, RIGHT HAND SALINE LOCK INTACT AND PATENT PER FLUSH, MAYES CATH TO DD WITH YELLOW URINE, FALL PREACUTIONS IN PLACE, PERSONAL BELONGINGS AND CALL LIGHT IN REACH, WILL CONTINUE TO MONITOR
--- NOTE | 2019-02-10 16:48 | NUR ---
I AGREE WITH NURSING ASSESSMENT DONE BY ROSELIA/HAI AND NURSING NOTE.
[2019-02-10 19:55] VITALS: BP 116/63
[2019-02-10 22:12] VITALS: BP 116/63
[2019-02-11 06:29] LABS: HEMOGLOBIN 13.5 gm/dL (12.0-15.0); MCH 29.1 pg (26.0-34.0); MCHC 33.7 g/dL (28.0-37.0); MCV 86.2 fL (80.0-100.0); RBC 4.64 mil/uL (4.20-5.00); RDW 14.4 % (10.5-14.5); WBC 4.5 thou/uL (4.0-11.0)
[2019-02-11 06:49] LABS: CREATININE 0.7 mg/dL (0.6-1.0); POTASSIUM 4.1 mmol/L (3.5-5.1)
--- NOTE | 2019-02-11 06:50 | NUR ---
Assumed pt. care at 1900. Remains A&Ox3; swallows meds whole w/o difficulty. Remains cont. bowel; ray cath intact/draining clear, yellow urine w/o difficulty. Ambulates w/ standby asst and walker; gait steady. Glasses noted to face. 02 intact at 2LNC. Remains on IVABT/UTI; no adverse reactions noted. R hand SL noted;flushed w/o difficulty. Redness noted to bottom; barrier cream applied. Pt.has no c/o pain or discomfort. No s/s of acute distress noted. Pt. asleep in bed w/ call light/desired belongings within reach. Bed/chair alarm intact. PO fluids encouraged. Will continue to monitor.
[2019-02-11 10:00] VITALS: BP 100/38
--- NOTE | 2019-02-11 12:29 | NUR ---
DALILA reviewed chart and spoke with nursing and attending physician. Pt is scheduled to have kyphoplasty tomorrow and then plan to discharge to SNF when medically stable. DALILA met with pt at bedside to provide update and discuss discharge plan. DALILA discussed that [facility] may not have a bed available when she is ready for discharge. However, [facility] has an agreement with Gis[facility] for pt to go there when discharged and then transfer to [facility] when a bed becomes available. Pt is agreeable and requests SW to speak with her son, Daniel. DALILA spoke with pt's son, via phone to provide update and discuss discharge plan. Pt's son is agreeable with plan for pt to go to [facility] until [facility] has a bed available. However, [facility] is their preference. DALILA updated [facility] liaison, who will forward pt's info to [facility]. DALILA notified [facility] placement coordinator and liaison. DALILA is following to assist as needed with discharge planning.
--- NOTE | 2019-02-11 16:15 | NUR ---
ASSUMED PATIENT AND CARES AT 0715, PATIENT IN BED INITIALLY, PATIENT GOT UP TO CHAIR FOR BREAKFAST, PATIENT A&OX4, PAIN 2, RECEIVED PAIN MEDICATION AT 0336, RIGHT HAND IV INTACT AND PATENT WITH FLUSH, FALL PRECAUTIONS IN PLACE, MAYES CATH TO DD WITH DIOMEDES URINE, ASSIST X1 WITH TRANSFERS, SBA WITH AMBULATION PER WALKER, PERSONAL BELONGINGS AND CALL LIGHT IN REACH, WILL CONTINUE TO MONITOR
[2019-02-11 18:51] VITALS: BP 120/69
--- NOTE | 2019-02-12 04:51 | NUR ---
ASSUMED CARE OF PATIENT AT 1900. PT WAS VERY DISORIENTED AND UNABLE TO RECALL PLACE, SITUATION, OR DATE; OTHERWISE NEURO EXAM NEGATIVE. PT ABLE TO BE REORIENTED AT THIS TIME. VSS. ASSESSMENT COMPLETED AT 2049 AND IS DOCUMENTED. PT HAS BEEN NPO SINCE MIDNIGHT FOR KYPHOPLASTY SCHEDULED FOR TODAY. RIGHT HAND IV PATENT AND SALINE LOCKED. PT CURRENTLY UTILIZING O2 @ 2L VIA NC; RT IN THROUGHOUT THE NIGHT FOR BREATHING TREATMENTS. MAYES PATENT WITH CLEAR YELLOW URINE. PT CONTINUES TO BE CONFUSED REGULARLY THROUGHOUT THE NIGHT. PT CURRENTLY SLEEPING SOUNDLY IN BED IN NO ACUTE DISTRESS. BED LOCKED AND IN LOWEST POSITION WITH ALL 4 RAILS UP AND BED ALARM ON D/T PT'S IMPULSIVENESS AND CONFUSION THROUGHOUT THE NIGHT. CALL LIGHT AND PERSONAL BELONGINGS WITHIN REACH. TM.
[2019-02-12 07:47] VITALS: BP 115/61
--- NOTE | 2019-02-12 10:35 | NUR ---
PATIENT LEFT THE UNIT AT APPROX 0935 FOR KYPHOPLASTY.
--- NOTE | 2019-02-12 10:58 | NUR ---
PATIENT RETURNED TO UNIT AT APPROX 1045. PATIENT SETTLED IN BED, OXYGEN ON, BED IN LOWEST POSITION AND CALL LIGHT WITHIN REACH.
--- NOTE | 2019-02-12 13:13 | NUR ---
ASSUMED CARE OF PATIENT THIS MORNING. SHE IS A&OX4. SHE GETS UP W/1 ASSIST AND WALKER. PATIENT HAD KYPHOPLASTY COMPLETED EARLIER THIS MORNING. SHE REMAINED BEDREST FOR 2 HOURS POST PROCEDURE. MORNING MEDICATIONS WERE HELD FOR THE PROCEDURE. SHE TOLERATED THE PROCEDURE WELL. PATIENT CONTINUES TO HAVE A MAYES CATHETER IN PLACE FOR RETENTION. WILL GIVE MORNING MEDICATIONS THAT WERE HELD. SHE RECEIVES Q4H BREATHING TREATMENTS. SHE WEARS 2L O2. PATIENT IS CURRENTLY SITTING IN RECLINER WITH CALL LIGHT WITHIN REACH. SHE CALLS OUT APPROPRIATELY FOR ASSISTANCE.
--- NOTE | 2019-02-12 13:27 | NUR ---
AGRICULTURAL REAL ESTATE AGENT NURSE MENTIONED THAT PATIENT BECAME CONFUSED, WHICH WAS NOT THE PATIENT'S BASELINE. DR. YEH WAS INFORMED ON PATIENT'S CHANGE IN MENTAL STATUS. PATIENT IS CURRENTLY A&OX4 TODAY. WILL CONTINUE TO MONITOR PATIENT FOR ANY SIGNS OF ANY MENTAL STATUS CHANGE.
--- NOTE | 2019-02-12 14:01 | NUR ---
SW reviewed chart and spoke with nursing and attending physician. Pt had kyphoplasty earlier today and is progressing towards goals for discharge. SW was notified by [facility] liaison that they will have a room for pt tomorrow. [facility] to provide transportation tomorrow at 1400. DALILA met with pt at bedside to provide update and discuss discharge plan. Pt is aware and agreeable with plan. DALILA spoke with pt's son, Daniel, via phone to provide update. Daniel is aware and in agreement with plan. Pt's son will visit pt this afternoon. Chart will need to be copied. Final discharge orders/summary will need to be faxed when available. SW is available to assist should needs arise. [facility]-- Admissions
[2019-02-12 19:15] VITALS: BP 105/60
--- NOTE | 2019-02-13 02:20 | NUR ---
ASSUMED CARE OF PATIENT AT 1900. VSS. ASSESSMENT COMPLETED AT 2030 AND IS DOCUMENTED. PT CONTINUES TO C/O LOWER BACK PAIN, TRAMADOL GIVEN WITH DESIRED EFFECT ACHIEVED. DENUDED SKIN ON BUTTOCK, SKIN PROTECTANT APPLIED X2. PT HAD A SMALL BM 02/12. PT HAS BEEN FUSSY AND UNABLE TO REMAIN ASLEEP TONIGHT FOR MULTIPLE REASONS. RELAXATION, REPOSITIONING, AND PAIN MEDICATION GIVEN WITH LITTLE CHANGE. PT CURRENTLY RESTING QUIETLY IN BED IN NO ACUTE DISTRESS. O2 @ 2L VIA NC ON. RIGHT HAND IV PATENT AND SALINE LOCKED. BED LOCKED AND IN LOWEST POSITION. WCTM.
--- NOTE | 2019-02-13 04:29 | NUR ---
THIS NURSE AGREES WITH ASSESSMENT AND NOTES BY CLAIM ADMINISTRATOR ON THIS PATIENT.
[2019-02-13 08:00] VITALS: BP 133/75
[2019-02-13] MEDS ORDERED: FLOMAX0.4 MG PO (10:39)
[2019-02-13] MEDS ORDERED: KEFLEX500 M2 PO (10:39)
[2019-02-13] MEDS ORDERED: TRAMADOL 50 MG50 MG PO (10:39)
[2019-02-13] MEDS ORDERED: VITAMIN B-12500 MCG PO (10:40)
[2019-02-13] MEDS ORDERED: PROTONIX40 M1 PO (10:40)
--- NOTE | 2019-02-13 12:42 | NUR ---
ASSUMED PATIENT AND CARES AT 0715, PATIENT IN BED WOKE LAYING IN BED, A&OX4, PAIN / TO LLE WITH TRANSFERS, RIGHT HAND IV INTACT AND PATENT WITH FLUSH, MAYES CATH TO DD REMOVED PRIOR TO SHIFT CHANGE, PATIENT HAS NOT BEEN UP YET TO VOID, PATIENT PREPARED TO DISCHARGE THIS AFTERNOON, PERSONAL BELONGINGS AND CALL LIGHT IN REACH, WILL CONTINUE TO MONITOR
--- NOTE | 2019-02-13 14:47 | NUR ---
PATIENT DISCHARGED TO [facility], FACILITY WHEELCHAIR TO PICK PATIENT UP, SON TO MEET PATIENT AT FACILITY, NURSE REMOVED RIGHT HAND SALINE LOCK AND REPLACED WITH GAUZE AND TAPE, PATIENT NOTED WITH RED ABRASION LIKE AREA TO LEFT BUTTUCK CREASE, AREA CLOSED AND DRY, NO DRAINAGE NOTED, NURSE COVERED AREA WITH TEGADERM, REPORT CALLED TO RECEIVING NURSE INCLUDING SKIN CONDITION, BELONGINGS PACKED TO BE SENT WITH PATIENT, CHART COPY AND SCRIPTS TO BE GIVEN TO PRIMARY CARE PEDIATRICIAN
--- NOTE | 2019-02-13 14:53 | NUR ---
I AGREE WITH NURSING ASSESSMENT DONE BY ROSELIA/HAI AND NURSING NOTE.
== END 2019-02-13 14:20 | DRG 515 ==
LOC: ER 08:07 → 4W 10:12 → EROBS 10:12 → SICU 10:12 → 4W 10:54 → SICU 02-09 06:47
PROVIDERS: Emergency Medicine; Nurse Practitioner Family; ADMIT Internal Medicine
DX: M48.56XA Collapsed vertebra, not elsewhere classified, lumbar region, initial encounter for fracture (principal); E43 Unspecified severe protein-calorie malnutrition; N39.0 Urinary tract infection, site not specified; C91.10 Chronic lymphocytic leukemia of B-cell type not having achieved remission; C85.90 Non-Hodgkin lymphoma, unspecified, unspecified site; M48.061 Spinal stenosis, lumbar region without neurogenic claudication; G89.29 Other chronic pain; M54.9 Dorsalgia, unspecified; E78.00 Pure hypercholesterolemia, unspecified; J44.9 Chronic obstructive pulmonary disease, unspecified; H40.9 Unspecified glaucoma; I50.9 Heart failure, unspecified; R33.9 Retention of urine, unspecified; M62.84 Sarcopenia; E78.5 Hyperlipidemia, unspecified; M51.36 Other intervertebral disc degeneration, lumbar region; I11.0 Hypertensive heart disease with heart failure; K59.03 Drug induced constipation; T40.605A Adverse effect of unspecified narcotics, initial encounter; Y92.89 Other specified places as the place of occurrence of the external cause; Z60.2 Problems related to living alone; I48.0 Paroxysmal atrial fibrillation; D69.6 Thrombocytopenia, unspecified; G47.33 Obstructive sleep apnea (adult) (pediatric); E53.8 Deficiency of other specified B group vitamins; Z87.81 Personal history of (healed) traumatic fracture; Z95.0 Presence of cardiac pacemaker; Z82.49 Family history of ischemic heart disease and other diseases of the circulatory system; Z83.6 Family history of other diseases of the respiratory system; Z87.891 Personal history of nicotine dependence; Z68.27 Body mass index [BMI] 27.0-27.9, adult
CPT/HCPCS: 10040; 15002

== ENCOUNTER 2019-06-19 15:20 | Emergency (ER) | payer OTHER, BC ==
[~2019-06-19] VITALS: Ht 167.6 cm; Wt 73.5 kg
[~2019-06-19 15:20] MED LIST changes: +KEFLEX500 M2 PO; +VITAMIN B-12500 MCG PO
[2019-06-19] MEDS ORDERED: PREDNISONE 20 M20 MG PO (18:18)
[2019-06-19] MEDS ORDERED: TRAMADOL 50 MG50 MG PO (18:18)
[2019-06-19] MEDS ORDERED: VALIUM5 MG PO (18:18)
[2019-06-19 18:30] VITALS: BP 126/81
== END 2019-06-19 18:30 | disposition home or self-care (01) ==
LOC: ER 15:20
DX: S13.4XXA Sprain of ligaments of cervical spine, initial encounter (principal); M50.30 Other cervical disc degeneration, unspecified cervical region; I11.0 Hypertensive heart disease with heart failure; I50.9 Heart failure, unspecified; E78.00 Pure hypercholesterolemia, unspecified; I48.91 Unspecified atrial fibrillation; J44.9 Chronic obstructive pulmonary disease, unspecified; G89.29 Other chronic pain; M54.9 Dorsalgia, unspecified; G47.30 Sleep apnea, unspecified; M19.90 Unspecified osteoarthritis, unspecified site; E78.5 Hyperlipidemia, unspecified; Z85.6 Personal history of leukemia; Z85.72 Personal history of non-Hodgkin lymphomas; Z95.0 Presence of cardiac pacemaker; X58.XXXA Exposure to other specified factors, initial encounter; Y92.89 Other specified places as the place of occurrence of the external cause; Y93.89 Activity, other specified; Y99.8 Other external cause status

== ENCOUNTER → 2019-06-23 | Outpatient (CLI) | payer OTHER, BC ==
[~2019-06-23] MED LIST changes: +VALIUM5 MG PO
[2019-06-23 10:18] LABS: CREATININE 0.7 mg/dL (0.6-1.0)
== END ==
LOC: CAT 09:39
PROVIDERS: Internal Medicine Hematology & Oncology
DX: C85.80 Other specified types of non-Hodgkin lymphoma, unspecified site (principal); N28.1 Cyst of kidney, acquired; K80.80 Other cholelithiasis without obstruction; K42.9 Umbilical hernia without obstruction or gangrene; J84.10 Pulmonary fibrosis, unspecified

== ENCOUNTER 2019-07-14 07:42 | Emergency (ER) | payer OTHER, BC ==
[~2019-07-14] VITALS: Ht 160 cm; Wt 86.2 kg
[2019-07-14 08:38] LABS: ABSOLUTE NEUTROPHILS 3.1 thou/uL (1.4-8.2); BASOPHILS 0.7 % (0.0-2.0); EOSINOPHILS 2.1 % (0.0-3.0); HEMATOCRIT 44.2 % (37.0-47.0); HEMOGLOBIN 14.4 gm/dL (12.0-15.0); LYMPHOCYTES 11.7 % (24.0-44.0); MCH 29.1 pg (26.0-34.0); MCHC 32.6 g/dL (28.0-37.0); MCV 89.2 fL (80.0-100.0); MONOCYTES 8.6 % (1.0-8.0); PLATELET COUNT 121 thou/uL (150-400); POLYS 76.9 % (36.0-66.0); RBC 4.95 mil/uL (4.20-5.00)
[2019-07-14] MEDS ORDERED: KLOR-CON 1010 MEQ PO (08:44)
[2019-07-14] MEDS ORDERED: ORPHENADRINE C100 M2 PO (08:46)
[2019-07-14] MEDS ORDERED: SPIRIVA18 MCG INH (08:47)
[2019-07-14] MEDS ORDERED: FLOMAX0.4 MG PO (08:48)
[2019-07-14 08:49] LABS: CALCIUM 9.3 mg/dL (8.5-10.1); CREATININE 0.8 mg/dL (0.6-1.0); POTASSIUM 3.8 mmol/L (3.5-5.1)
[2019-07-14 08:55] LABS: ALBUMIN 3.3 g/dL (3.4-5.0); TOTAL BILIRUBIN 1.4 mg/dL (<0.1-1.0); TOTAL PROTEIN 5.9 g/dL (6.4-8.2)
[2019-07-14 09:57] LABS: URINE BILIRUBIN NEGATIVE (Negative); URINE BLOOD 1+ (Negative); URINE CLARITY CLEAR; URINE COLOR YELLOW; URINE GLUCOSE-RANDOM* NEGATIVE (Negative); URINE KETONES NEGATIVE (Negative); URINE NITRITE-REFLEX NEGATIVE (Negative); URINE PROTEIN (DIPSTICK) NEGATIVE (Negative); URINE SPECIFIC GRAVITY <= 1.005 (1.005-1.035)
[2019-07-14 10:00] LABS: URINE LEUKOCYTES-REFLEX 2+ (Negative)
[2019-07-14 10:07] LABS: SQUAMOUS 0-3 Few /LPF (0-3)
[2019-07-14 10:08] LABS: CASTS None Seen /LPF (None Seen); CRYSTALS None Seen /LPF (None Seen); URINE RBC None Seen /HPF (0-2); URINE WBC-REFLEX None Seen /HPF (0-5)
[2019-07-14] MEDS ORDERED: TRAMADOL 50 MG50 MG PO (14:09)
[2019-07-14 14:14] VITALS: BP 134/68
== END 2019-07-14 14:21 | disposition home or self-care (01) ==
LOC: ER 07:42
PROVIDERS: Emergency Medicine
DX: G89.29 Other chronic pain (principal); M54.9 Dorsalgia, unspecified; I11.0 Hypertensive heart disease with heart failure; I50.9 Heart failure, unspecified; I48.91 Unspecified atrial fibrillation; E78.00 Pure hypercholesterolemia, unspecified; G47.30 Sleep apnea, unspecified; J44.9 Chronic obstructive pulmonary disease, unspecified; E78.5 Hyperlipidemia, unspecified; M19.90 Unspecified osteoarthritis, unspecified site; Z85.6 Personal history of leukemia; Z87.891 Personal history of nicotine dependence

== ENCOUNTER 2019-12-25 17:57 | Inpatient (IN) | payer OTHER, BC ==
[~2019-12-25] VITALS: Ht 167.6 cm; Wt 75.6 kg
[~2019-12-25 17:57] MED LIST changes: +ORPHENADRINE C100 M2 PO; +SPIRIVA18 MCG INH
[2019-12-25 17:58] VITALS: BP 102/47
[2019-12-25 19:23] LABS: ABSOLUTE NEUTROPHILS 4.6 thou/uL (1.4-8.2); BASOPHILS 0.8 % (0.0-2.0); EOSINOPHILS 1.2 % (0.0-3.0); HEMATOCRIT 42.1 % (37.0-47.0); HEMOGLOBIN 13.9 gm/dL (12.0-15.0); LYMPHOCYTES 11.4 % (24.0-44.0); MCV 87.9 fL (80.0-100.0); MONOCYTES 10.5 % (1.0-8.0); PLATELET COUNT 164 thou/uL (150-400); POLYS 76.1 % (36.0-66.0); RBC 4.79 mil/uL (4.20-5.00); RDW 14.6 % (10.5-14.5)
[2019-12-25 19:32] LABS: ANION GAP 7 mmol/L (7-16); BUN 13 mg/dL (7-18); CHLORIDE 105 mmol/L (98-107); CO2 31 mmol/L (21-32); CREATININE 0.7 mg/dL (0.6-1.0); GLUCOSE 91 mg/dL (74-106); POTASSIUM 3.9 mmol/L (3.5-5.1); SODIUM 143 mmol/L (136-145)
[2019-12-25 19:40] LABS: TROPONIN-I <0.06 ng/mL (<0.06)
[2019-12-25] MEDS ORDERED: HYDROXYZINE HCL10 M2 PO (19:52)
[2019-12-25] MEDS ORDERED: PREDNISONE 5 MG5 M1 PO (19:53)
[2019-12-25] MEDS ORDERED: TRAZODONE 150150 M1 PO (19:54)
[2019-12-25 23:11] VITALS: BP 141/75
[2019-12-25 23:20] VITALS: BP 141/75
--- NOTE | 2019-12-26 04:02 | NUR ---
PT ARRIVED FROM THE ER VIA CART. A&OX4 WITH C/O OF NAUSEA. X1 EMESIS NOTED AND PT STATED FELT BETTER. ADMISSION DONE. NEW ORDERS PLACED FROM ONCALL FIRE FIGHTING EQUIPMENT SPECIALIST. PT SLEPT THE REST OF THE SHIFT. IV INTACT AND SALINE LOCK. WILL CONT WITH POC TILL EOS.
[2019-12-26 09:16] VITALS: BP 134/79
[2019-12-26 11:56] VITALS: BP 134/79
--- NOTE | 2019-12-26 12:21 | NUR ---
A/O, calm and pleasant; complains of pain in right hip and headache, Tylenol given and worked; patient is in bed, with eyes closed, chest up and down. HR elevated, digoxin given around 11am. lab reviewed. Vital signs was notified to Dr. Vee.
--- NOTE | 2019-12-26 13:20 | EKG ---
[facility] [place] [address] ELECTROCARDIOGRAM REPORT Name: JEREMY GAFFNEY Room #: 444-P ADM IN M.R.#: [id number] Admission: 12/25/19 Attend Phys: Minesh Vee MD Discharge: Date of : 39 Report #: [id number] THIS REPORT FOR: cc: Edmund De Leon MD, Steven A. MD Lundgren,Gian Baldwin MD [facility] ~ THIS REPORT FOR: //name// [facility] ED Test Date: 2019-12-25 Test Time: 18:52:23 Pat Name: JEREMY GAFFNEY Department: Room: 444 Gender: F Robotics Technician: MAAME : [id number] Requested By: Asad Bain Order Number: [id number] MD: Gian Rothman Measurements Intervals [place] Rate: 78 P: 0 ND: 336 QRS: 126 QRSD: 154 T: -51 QT: 403 QTc: 460 Interpretive Statements Ventricular-paced rhythm No further analysis attempted due to paced rhythm Compared to ECG 06/30/2017 12:27:40 Ventricular pacing is now present Electronically Signed On 12-26-2019 13:19:52 CDT by Gian Rothman [email or web address] <ELECTRONICALLY SIGNED> By: Gian Rothman MD, FAC 12/26/19 1319 51 51 Gian Rothman MD, FAC /EPI
--- NOTE | 2019-12-26 15:43 | NUR ---
PATIENT CARE ASSUMED AT 1400. PT IS SLEEPING. PT COMPLAINING ABOUT A "NAGGING" COUGH THAT WILL NOT STOP AND IS REQUESTING SOMETHING TO HELP THE FLEM COME OUT AND REDUCE THE COUGH. MD NOTIFIED AND AWAITING ORDERS.
[2019-12-26 17:56] VITALS: BP 97/49
[2019-12-26 18:09] VITALS: BP 97/49
[2019-12-26 19:50] VITALS: BP 118/46
[2019-12-27 05:56] VITALS: BP 117/38
[2019-12-27 06:00] VITALS: BP 131/52
--- NOTE | 2019-12-27 06:30 | NUR ---
PT AOX4. PT REPORTS GENERALIZED PAIN AND A HEADACHE. PT RECEIVING PRN APAP Q4HR AND PRN TRAMADOL Q6HR. PT REPORTS NAUSEA WITH X1 EPISODE OF UNWITNESSED EMESIS. PT RECEIVING PRN ZOFRAN Q4HR. PT ASSESSED WITH AND REPORTS ANXIETY. PT RECEIVING PRN HYDROXYZINE Q6HR. PT TOLERATING PO INTAKE OF FLUIDS WITHOUT ISSUE. FREQUENT REPOSITIONING ENCOURAGED, PT INDEPENDENT WITH REPOSITIONING WHILE IN BED. PT ENCOURAGED TO NOTIFY STAFF FOR ALL NEEDS. CALL LIGHT WITHIN REACH, BED IN LOWEST POSITION, BED ALARM ON. WILL CONTINUE TO MONITOR.
[2019-12-27 07:58] VITALS: BP 117/38
[2019-12-27 11:56] VITALS: BP 117/38
[2019-12-27 12:00] VITALS: BP 117/38
--- NOTE | 2019-12-27 12:01 | NUR ---
PT CARE ASSUMED AT 0700. A&Ox4. PTIS VERY ANXIOUS AND IS NAUSEATED. WANTS TO SLEEP AND NOT GET UP. MD HAS SEEN PT AND WOULD LIKE FOR HER TO HAVE AN EGD DONE. AWAITING ORDERS. PT DID GET UP WITH OT INTO THE RECLINER RELUCTANTLY. IV PATENT WITH NO REDNESS OR EDEMA. SALINE LOCKED. NAUSEA MEDICATION GIVEN. TAKES ONE PILL AT A TIME WHOLE. FALL RISK IN PLACE. LOTS OF THICK MUCUS THAT THE PT SPITS OUT. CALL LIGHT IN REACH. WILL CONTINUE TO MONITOR. REPORT GIVEN TO MARIA GUADALUPE AMAYA WHO WILL TAKE OVER CARE FOR THE REST OF THIS SHIFT.
--- NOTE | 2019-12-27 14:02 | NUR ---
PT ADMITTED RELATED TO WEAKNESS, FALL WITH RT HIP PAIN, IMAGING NEGATIVE. CM REVIEWED CHART AND SPOKE [facility] CARE TEAM. CM MET WITH PT AT BEDSIDE THIS DAY. PT IS A&O X4. CM ROLE INTRODCUED. PT INDICATED THAT SHE LIVES IN ASSISTED LIVING AT [facility] AND HAS BEEN THERE FOR ABOUT 7 MONTHS. PT INDICATED SHE HAD BEEN USING A FWW TO ASSIST WITH MOBILITY PSYCHIATRIC CNS. PT INDICATED SHE HAS HOME O2 AND SHE HAD USED IT AT 2 L AT NIGHT PSYCHIATRIC CNS. PT INDICATED SHE HAS INHALERS FOR HOME USE. PT INDICATED SHE HAD BEEN TO [facility] IN THE PAST AND THINKS SHE HAD [facility]. PT INDICATED SHE WAS INTERESTED IN GOING FOR SHORT TERM POST ACUTE CARE STAY AT [facility]. REFERRAL SENT. CM TO CALL AND SPEAK WITH PT'S SON WELL. CM TO FOLLOW INDICATED WITH DC PLANNING.
--- NOTE | 2019-12-27 16:45 | NUR ---
FAXED REFERRAL TO [facility] SPOKE WITH JOSE IN ADM SHE RECEIVED REFERRAL AND WILL REVIEW. DP TO FOLLOW.
--- NOTE | 2019-12-27 19:58 | NUR ---
1900 ASSUMED CARE OF PT AFTER BEDSIDE REPOT, 1950 ASSESSMENT COMPLETED, PT C/O PAIN ALL OVER WILL BRING PAIN MED PER ORDER, PT REPOSITIONED, ABLE TO MOVE BLE WITH PEDAL PULSES PALPABLE AND SENSATION AND STRENGTH EQUAL BILAT, LUNGS COARSE BUT CLEAR WITH COUGH, FALL PRECAUTIONS IN PLACE, WILL CONTINUE TO MONITOR WITH HOURLY ROUNDING, PT ABLE TO REPOSITION SELF.
--- NOTE | 2019-12-27 20:07 | NUR ---
A/O, calm and cooperative; up on chair during the afternoon. Discharge ordered, pillowcase turner Enrike stated that the patient would not be discharged today. vss, afebrile.
[2019-12-27 20:10] VITALS: BP 145/67
[2019-12-28 04:00] VITALS: BP 147/75
[2019-12-28 08:25] VITALS: BP 115/96
[2019-12-28 09:19] VITALS: BP 115/96
--- NOTE | 2019-12-28 12:37 | NUR ---
HOSPITALIST INDICATED THAT PT IS MEDICALLY STABLE TO DC TO [facility] THIS DAY. [facility] ABLE TO ACCEPT AND CAN PROVIDE WHEELCAHIR VAN TRANSPORT AT 12:00 WITH 2.5L O2. CM CALLED AND NOTIFIED PT'S DPOA/SON REBEL HE IS AWARE AND AGREEABLE. GI HADN'T BEEN NOTIFIED OF ANTICPATED DC AND WERE TAKEN ABACK PT WAS DISCHARGING. CM FOLLOWED UP WITH GI AND HOSPITALIST AND THEY INDICATED THE DC STANDS AND THAT PT IS TO FOLLOW UP AN OUTPATIENT AFTER SHORT TERM POST ACUTE CARE STAY FOR EGD. CHART COPY ORDERED. ORDERS FAXED. REPORT CALLED BY PHYSICIAN. NO OTHER CM INTERVETNION INDICATED. CASE CLOSED.
--- NOTE | 2019-12-28 12:38 | NUR ---
ASSUMED CARE OF THE PT AT 0700. PTS LUNGS ARE COARSE AND COUGH IS FAIR, MUCUS NOT OBSERVED, PT STATED MUCUS IS YELLOWISH GREEN WHEN COUGHED UP. PT C/O NOT HAVING COUGH MEDICINE, CONTACT DOCTOR AND PT WAS GIVEN COUGH MEDICINE BEFORE D/C, SEE EMAR. PAIN MEDS GIVEN, SEE EMAR. PT IS SOMEWHAT FORGET AND CONTINUED TO ASK FOR MEDICATIONS ALREADY GIVEN. 2.5 L O2 NC. PT D/C TO [facility]. IV REMOVED, BELONGINGS AND PPWK SENT W PT.
== END 2019-12-28 12:35 | DRG 605 ==
LOC: ER 17:57 → 4S 22:57 → EROBS 22:57 → 4S 23:33
PROVIDERS: Emergency Medicine; ADMIT Hospitalist
DX: S90.01XA Contusion of right ankle, initial encounter (principal); J96.11 Chronic respiratory failure with hypoxia; J44.1 Chronic obstructive pulmonary disease with (acute) exacerbation; G89.11 Acute pain due to trauma; I50.9 Heart failure, unspecified; I48.91 Unspecified atrial fibrillation; I11.0 Hypertensive heart disease with heart failure; E78.5 Hyperlipidemia, unspecified; G47.33 Obstructive sleep apnea (adult) (pediatric); F41.9 Anxiety disorder, unspecified; R13.10 Dysphagia, unspecified; M85.80 Other specified disorders of bone density and structure, unspecified site; G47.00 Insomnia, unspecified; K64.8 Other hemorrhoids; K21.9 Gastro-esophageal reflux disease without esophagitis; G47.30 Sleep apnea, unspecified; M46.90 Unspecified inflammatory spondylopathy, site unspecified; E78.00 Pure hypercholesterolemia, unspecified; W18.39XA Other fall on same level, initial encounter; M62.84 Sarcopenia; H40.9 Unspecified glaucoma; M54.9 Dorsalgia, unspecified; G89.29 Other chronic pain; Z95.0 Presence of cardiac pacemaker; Z85.72 Personal history of non-Hodgkin lymphomas; Z87.440 Personal history of urinary (tract) infections; Z79.891 Long term (current) use of opiate analgesic; Z79.899 Other long term (current) drug therapy; Z87.891 Personal history of nicotine dependence; Y93.89 Activity, other specified; Y92.89 Other specified places as the place of occurrence of the external cause; Z86.010 Personal history of colon polyps; Z68.26 Body mass index [BMI] 26.0-26.9, adult; Y99.8 Other external cause status; Z85.6 Personal history of leukemia; Z79.01 Long term (current) use of anticoagulants
CPT/HCPCS: 10195

== ENCOUNTER → 2020-01-13 | Outpatient (CLI) | payer OTHER, BC ==
[~2020-01-13] VITALS: Ht 167.6 cm; Wt 78.7 kg
[~2020-01-13] MED LIST changes: +DULCOLAX10 MG RECTAL; +HYDROXYZINE HCL10 M2 PO; +PREDNISONE 5 MG5 M1 PO; +ROBITUSSIN-COU237 ML PO; +TRAZODONE 150150 M1 PO
--- NOTE | ~2020-01-13 | P ---
[facility] [place] [address] PROCEDURE REPORT Name: JEREMY GAFFNEY Room #: [facility]#: [id number] Admission: 01/13/20 Attend Phys: Beck Nash MD Discharge: Date of : 37 Report #: [id number] THIS REPORT FOR: cc: Edmund De Leon MD, Steven A. MD Thesing, John A. MD ~ CC: Beck De Leon OUTPATIENT UPPER ENDOSCOPY REPORT BRIEF HISTORY: The patient is an 84-year-old woman who was recently admitted to [facility] and was found to have dysphagia. However, she was on Pradaxa and upper endoscopy and dilation was not completed due to the Pradaxa. She continues with esophageal dysphagia. She presents now for upper endoscopy for further evaluation and management of her esophageal dysphagia with esophageal dilation. PREOPERATIVE DIAGNOSIS: Dysphagia. POSTOPERATIVE DIAGNOSES: 1. Grade C erosive esophagitis. 2. Moderately diffuse bile gastritis. 3. Dysphagia. MEDICATIONS: Deep sedation with propofol per anesthesia. SPECIMEN: None. ESTIMATED BLOOD LOSS: None. PROCEDURE: EGD with Aguilar dilation. FINDINGS: Prior to propofol sedation, procedure of upper endoscopy and dilation was discussed with the patient as well as potential risks and its complications. She indicates she understands and desires to proceed. DESCRIPTION OF PROCEDURE: With the patient in left lateral decubitus position, the Olympus video endoscope was inserted in the cervical esophagus under direct vision without difficulty. Examination of this organ through its entire length revealed normal esophageal mucosa into the distal esophagus along the squamocolumnar junction and erosive changes were seen consistent with grade C erosive esophagitis. No strictures or masses were seen. There was no evidence of Harris's mucosa. Hiatus hernia was not seen. The scope passed easily into the stomach, which was examined on end view as well as retroflexed views. She had a diffuse moderate erythematous gastritis involving essentially the entire [address] [address] PROCEDURE REPORT Name: GULSHANJEREMY M Room #: [facility]#: [id number] Admission: 01/13/20 Attend Phys: Beck Nash MD Discharge: Date of : 37 Report #: [id number] stomach. There was a small amount of bile in the stomach, which was aspirated away. Findings were consistent with bile gastritis. Upon retroflexion, no mass lesions were seen and the cardia was otherwise unremarkable. Pylorus was unremarkable. Duodenal bulb was unremarkable. Duodenal sweep was unremarkable. At that point, the scope was slowly withdrawn and careful circumferential views confirmed the above finding. The patient tolerated the procedure well. Subsequently, she was dilated with passage of 50-Lithuanian Aguilar dilator. There was no resistance. CONDITION OF THE PATIENT UPON DISCHARGE: Following procedure, the patient was drowsy, aroused, conversant and will be discharged home when fully ambulatory. INSTRUCTIONS TO THE PATIENT AND FAMILY AT THE TIME OF DISCHARGE: She clearly has esophagitis. This may be contributing to her symptoms of dysphagia. She denies typical reflux symptoms. We will place her on omeprazole 20 mg daily. If she continues to have problems with dysphagia following treatment today and also on PPI therapy, esophageal manometry may be an option. The patient will return to care of Dr. Donaldo Choudhary and return to see me if she has further difficulties. By: [id number] Beck Nash MD /nt
== END | disposition home or self-care (01) ==
LOC: GI 08:49
DX: R13.10 Dysphagia, unspecified (principal); K29.70 Gastritis, unspecified, without bleeding; K22.10 Ulcer of esophagus without bleeding; K44.9 Diaphragmatic hernia without obstruction or gangrene; I11.0 Hypertensive heart disease with heart failure; I50.9 Heart failure, unspecified; I48.91 Unspecified atrial fibrillation; J43.9 Emphysema, unspecified; F32.9 Major depressive disorder, single episode, unspecified; K21.9 Gastro-esophageal reflux disease without esophagitis; E78.5 Hyperlipidemia, unspecified; M54.9 Dorsalgia, unspecified; G89.29 Other chronic pain; H40.9 Unspecified glaucoma; Z98.890 Other specified postprocedural states; Z79.899 Other long term (current) drug therapy

== ENCOUNTER 2020-04-06 13:29 | Inpatient (IN) | payer OTHER, BC ==
[2020-04-06] VITALS (9 sets, daily range): BP systolic 99–119; BP diastolic 46–91
[~2020-04-06] VITALS: Ht 172.7 cm; Wt 75.0 kg
[2020-04-06 14:49] LABS: URINE BILIRUBIN 1+ (Negative); URINE BLOOD NEGATIVE (Negative); URINE CLARITY CLEAR; URINE COLOR YELLOW; URINE GLUCOSE-RANDOM* NEGATIVE (Negative); URINE KETONES TRACE (Negative); URINE LEUKOCYTES-REFLEX NEGATIVE (Negative); URINE NITRITE-REFLEX POSITIVE (Negative); URINE PROTEIN (DIPSTICK) 1+ (Negative); URINE UROBILINOGEN >= 8.0 E.U./dl (0.2-1.0)
[2020-04-06 14:50] LABS: ICTOTEST (BILI CONFIRMATORY) Negative (Negative)
[2020-04-06 14:55] LABS: ABSOLUTE NEUTROPHILS 7.3 thou/uL (1.4-8.2); BASOPHILS 0.9 % (0.0-2.0); HEMATOCRIT 42.5 % (37.0-47.0); HEMOGLOBIN 14.8 gm/dL (12.0-15.0); LYMPHOCYTES 12.3 % (24.0-44.0); MCH 30.6 pg (26.0-34.0); MCHC 34.8 g/dL (28.0-37.0); MCV 87.9 fL (80.0-100.0); MONOCYTES 2.6 % (1.0-8.0); POLYS 84.2 % (36.0-66.0); RBC 4.84 mil/uL (4.20-5.00); RDW 15.3 % (10.5-14.5); WBC 8.6 thou/uL (4.0-11.0)
[2020-04-06 15:02] LABS: CALCIUM 9.3 mg/dL (8.5-10.1); CREATININE 1.1 mg/dL (0.6-1.0); POTASSIUM 4.4 mmol/L (3.5-5.1)
[2020-04-06 15:11] LABS: ALBUMIN 2.5 g/dL (3.4-5.0); TOTAL BILIRUBIN 4.4 mg/dL (0.2-1.0); TOTAL PROTEIN 4.9 g/dL (6.4-8.2); TROPONIN-I 0.1 ng/mL (<0.06)
[2020-04-06 15:32] LABS: BACTERIA-REFLEX >30 Many /HPF (None Seen); CASTS None Seen /LPF (None Seen); CRYSTALS None Seen /LPF (None Seen); SQUAMOUS 0-3 Few /LPF (0-3); URINE RBC None Seen /HPF (0-2); URINE WBC-REFLEX 0-5 Rare /HPF (0-5)
[2020-04-06 15:38] LABS: PLATELET COUNT 91 thou/uL (150-400)
[2020-04-06] MEDS ORDERED: BUSPIRONE HCL10 MG PO (15:39)
[2020-04-06] MEDS ORDERED: DILTIAZEM ER180 M2 PO (15:40)
[2020-04-06] MEDS ORDERED: LASIX 40 MG TAB40 MG PO (15:40)
[2020-04-06] MEDS ORDERED: PRADAXA150 MG PO (15:41)
[2020-04-06] MEDS ORDERED: SPIRIVA INH (15:42)
[2020-04-06] MEDS ORDERED: PREDNISONE 20 M20 M1 PO (15:43)
[2020-04-06] MEDS ORDERED: SENNA LAX8.6 MG PO ×2 (15:43)
[2020-04-06] MEDS ORDERED: OMEPRAZOLE20 M2 PO (15:44)
[2020-04-06] MEDS ORDERED: BRIMONIDINE TART5 ML OPHTHALMIC (15:46)
--- NOTE | 2020-04-06 17:02 | NUR ---
REPORT ATTEMPTED TO ICU NURSE. REPORTS SHE WILL HAVE TO CALL BACK.
--- NOTE | 2020-04-06 17:27 | NUR ---
Attempted to call patient's son. Message left on voicemail.
--- NOTE | 2020-04-06 17:32 | NUR ---
Patient's son updated at this time. Reports that assisted facility had called him prior to patient arrival.
--- NOTE | 2020-04-06 19:27 | NUR ---
PATIENT ARRIVED TO UNIT APPROX 18:20. PT HAS INCREASED ANXIETY, NOT PARTICIPATING IN ASSESSMENT. REFUSING TO OPEN EYES, ANSWER QUESTIONS, OR PARTICIPATE WITH DULL COAT MILL OPERATOR/STRENGTH. PATIENT ON 2L NC, O2 SATS 91%. PLACED ON MONITOR, BED ALARM ON, SCD'S IN PLACE. PHYSICIAN CALLED AND NOTIFIED THAT PATIENT ARRIVED TO UNIT. ADMISSION COMPLETED WITH EXCEPTION OF MED RECONCILIATION. INFORMED ONCOMING NURSE IN REPORT.
[2020-04-07] VITALS (28 sets, daily range): BP systolic 85–129; BP diastolic 41–66
[2020-04-07 05:27] LABS: HEMATOCRIT 37.8 % (37.0-47.0); HEMOGLOBIN 13.1 gm/dL (12.0-15.0); MCH 30.7 pg (26.0-34.0); MCHC 34.6 g/dL (28.0-37.0); MCV 88.7 fL (80.0-100.0); RBC 4.26 mil/uL (4.20-5.00); RDW 15.1 % (10.5-14.5); WBC 4.9 thou/uL (4.0-11.0)
[2020-04-07 05:55] LABS: CALCIUM 8.1 mg/dL (8.5-10.1); CREATININE 0.7 mg/dL (0.6-1.0); TOTAL BILIRUBIN 3.2 mg/dL (0.2-1.0); TOTAL PROTEIN 4.1 g/dL (6.4-8.2)
[2020-04-07 05:58] LABS: POTASSIUM 3.3 mmol/L (3.5-5.1)
--- NOTE | 2020-04-07 07:38 | NUR ---
PT LETHARGIC, NOT FOLLOWING DIERECTIONS, GRUNTING AND YELLING WHEN TURNED OF REPOSITIONED, LASIX AND MAYES STARTED, PT PULLING ON CORDS AND LINES, WHEN REORIENTING SHE STARTED ASKING QUESTIONS, AND STARTED FOLLOWING DIRECTIONS, STILL YELLS OUT WHEN TURNING YET DENIES PAIN, SBP 90-TEENS, NO FVR, AFIB AND VPACED PER MONITOR, LAB BG WAS 56 SO AFTER CHECKING ANOTHER BG @ 55 RECEIVED ORDER FOR HYPOGLYCEMIC PROTOCOL, GAVE REPORT TO NEXT SHIFT TO CON'T WITH PPOC.
--- NOTE | 2020-04-07 08:09 | NUR ---
RN assumed care at 0700. PT is in bed and appears drowsy. PT is unable to answer questions and moans without saying clear words. RN believes PT did state, "What are you doing? I'm at home." RN attempted to administer PO medications to PT however she was unable to pass a bedside swallow eval. RN will notify the provider. Siomara Baldwin NP on unit told RN to hold IV lasix dose to prevent lowering PT's blood pressures even further. RN verbalized understanding and held lasix dose. RN also held all PO medications at this time as PT is unable to swallow pills safely. PT appeared to have pain when RN moved her legs and palpated pulses. Fall precautions are in place. RN will continue to monitor.
[2020-04-07 08:41] LABS: BE(vivo) 7.5 mmol/L (-2 to +3); HCO3 33.4 mmol/L (22.0-26.0); PCO2 51.8 mmHg (35.0-45.0); PO2 67.2 mmHg (80.0-100.0); pH 7.427 (7.360-7.450); sO2 93.5 % (92.0-98.0)
--- NOTE | 2020-04-07 09:01 | NUR ---
RN spoke with son, Daniel Ye, and gave him an update of PT condition. RN also gave him PT's passcode as he is her designated contact in chart and PT is unable to answer questions appropriately. Daniel appeared pleasant and expressed his concern for rehab post discharge. He stated that the PT has gone to a rehab facility in [place] and had a positive experience. RN verbalized understanding and stated she would speak with case management in regards to discharge planning. RN will continue to monitor.
--- NOTE | 2020-04-07 12:40 | NUR ---
INITIAL ASSSESSMENT: SW reviewed chart and spoke with nursing. Pt was admitted from [facility] due to UTI/elevated troponin. Pt is currently in ICU in Enhanced Isolation to r/o COVID-19. Pt's test is negative. DALILA spoke with pt's son, Daniel, via phone. Introduced role of SW. Pt is in the LTC unit at [facility]. Pt was living in the [facility], until previous hospital stay in December and then was discharged from [facility] to [facility] on 12/27. Pt discharged to [facility] LT on 02/10 per pt's son. Pt uses a w/c. Pt's PCP is Dr. Crocker at the facility. Pt has also seen Dr. De Leon as an outpatient prior to admission to the LTC unit. Pt's son requests referral to be sent to [facility] for review. Pt's family are interested in moving her to a new LTC facility if needed after next SNF stay. However, they are not able to tour facilities at this time. Family agreeable with returning to [facility] if needed after SNF stay at [facility] . Will need therapy evals ordered when pt is able to participate. SW faxed clincical info to [facility] and notified liasion. No weekend discharge anticipated. Pt has 55 skilled days available. SW is following to assist as needed with discharge planning.
--- NOTE | 2020-04-07 15:36 | 2DMMODE ---
[address] [address] 2 D/M-MODE ECHOCARDIOGRAM Name: JEREMY GAFFNEY Room #: 238-P ADM IN M.R.#: [id number] Admission: 04/06/20 Attend Phys: Kory Crocker MD Discharge: Date of : 37 Report #: [id number] THIS REPORT FOR: cc: Edmund De Leon MD, Steven A. MD Park, Jin S. MD ~ APPROVED REPORT Study performed: 04/07/2020 13:44:09 EXAM: Comprehensive 2D, Doppler, and color-flow Echocardiogram Patient Location: ICU Room #: 238 Status: routine BSA: 1.94 HR: 59 bpm BP: 111/54 mmHg Rhythm: Bradycardia Other Information Study Quality: Adequate Indications Congestive Heart Failure COPD Dyspnea Pacemaker Elevated Troponin Hypertension/HDD 2D Dimensions IVC: 24.00 mm Volumes Left Atrial Volume (Systole) LA ESV Index: 46.00 mL/m2 Tricuspid Valve PA Pressure: 46.00 mmHg Left Ventricle The left ventricle is normal size. There is normal LV segmental wall motion. There is normal left ventricular wall thickness. The left ventricular systolic function is normal. The left ventricular [address] [address] 2 D/M-MODE ECHOCARDIOGRAM Name: JEREMY GAFFNEY Room #: 238-P ADM IN M.R.#: [id number] Admission: 04/06/20 Attend Phys: Kory Crocker MD Discharge: Date of : 37 Report #: [id number] ejection fraction is within the normal range. LVEF is 55-60%. This study is not technically sufficient to allow evaluation of the LV diastolic function. Right Ventricle The right ventricle is normal size. The right ventricular systolic function is normal. Atria Left atrium is dilated. Right atrium is dilated. Aortic Valve The aortic valve is normal in structure. No aortic regurgitation is present. There is no aortic valvular stenosis. Mitral Valve The mitral valve is normal in structure. Mild mitral regurgitation. No evidence of mitral valve stenosis. Tricuspid Valve The tricuspid valve is normal in structure. There is mild tricuspid regurgitation. Estimated PAP 42 mmHg. Pulmonic Valve The pulmonary valve is normal in structure. There is no pulmonic valvular regurgitation. Great Vessels The aortic root is normal in size. IVC is dilated and collapses <50% with inspiration. Pericardium There is no pericardial effusion. <Conclusion> The left ventricle is normal size. There is normal left ventricular wall thickness. The left ventricular systolic function is normal. The right ventricle is normal size. Left atrium is dilated. Right atrium is dilated. There is no aortic valvular stenosis. [facility] [address] [place] [address] 2 D/M-MODE ECHOCARDIOGRAM Name: JEREMY GAFFNEY Room #: 238-P [facility] IN M.R.#: [id number] Admission: 04/06/20 Attend Phys: Kory Crocker MD Discharge: Date of : 37 Report #: [id number] Mild mitral regurgitation. There is mild tricuspid regurgitation. Estimated PAP 42 mmHg. <ELECTRONICALLY SIGNED> By: Ar Phillips MD 04/07/20 1535 1535 Ar Phillips MD /INF
[2020-04-07 15:58] LABS: CALCIUM 7.8 mg/dL (8.5-10.1); CREATININE 0.7 mg/dL (0.6-1.0); MAGNESIUM 1.7 mg/dL (1.8-2.4); POTASSIUM 3.8 mmol/L (3.5-5.1)
--- NOTE | 2020-04-07 17:47 | NUR ---
RN spoke with Dr. Crocker at bedside today at approximately 1230. RN informed provider that the PT failed bedside swallow test, PO medications held, and she had two episodes of hypoglycemia requiring dextrose. Provider verbalized understanding and ordered a speech eval for the PT and decided against dextrose IVF due to PT's CHF. Provider also made PT medsurg status with tele and ordered a consult for Dr. Gold with ID. RN verbalized understanding. PT had an abdominal ultrasound today, see report for further details. PT was seen by physical therapy today. High fall precautions in place. PT is progressing towards goals. RN will continue to monitor.
[2020-04-08] VITALS (7 sets, daily range): BP systolic 91–115; BP diastolic 38–68
[2020-04-08 05:33] LABS: ABSOLUTE NEUTROPHILS 3.3 thou/uL (1.4-8.2); BASOPHILS 0.1 % (0.0-2.0); EOSINOPHILS 0.5 % (0.0-3.0); HEMATOCRIT 37.4 % (37.0-47.0); HEMOGLOBIN 12.9 gm/dL (12.0-15.0); LYMPHOCYTES 10.2 % (24.0-44.0); MCH 30.9 pg (26.0-34.0); MCHC 34.5 g/dL (28.0-37.0); MCV 89.4 fL (80.0-100.0); MONOCYTES 3.3 % (1.0-8.0); PLATELET COUNT 70 thou/uL (150-400); POLYS 85.9 % (36.0-66.0); RBC 4.18 mil/uL (4.20-5.00); RDW 15.4 % (10.5-14.5); WBC 3.9 thou/uL (4.0-11.0)
--- NOTE | 2020-04-08 06:34 | NUR ---
PT AWAKE WHEN AROUSED, OTHERWISE LETHARGIC. PT ABLE TO SWALLOW APPLE SAUCE WITH MEDS CRUSHED. PT ABLE TO VERBALIZE HER NEEDS. PT HAD ONE BROWN RED BM. HH STABLE. BLOOD GLUCOSE KEEPS DROPPING BELOW 70 THREE TIMES AT NIGHT. PT WAS TREATED WITH DEXTROSE 10% ON THREE TIMES AND BG RECHECKED AFTER EACH TREATMENT. PLAN TO TRANSFER MED SURG TELE IF BED AVAILABLE. CONTINUE TO MONITTOR. CHART CHECK.
--- NOTE | 2020-04-08 11:45 | EKG ---
[facility] [place] [address] ELECTROCARDIOGRAM REPORT Name: JEREMY GAFFNEY Room #: 238-P ADM IN M.R.#: [id number] Admission: 04/06/20 Attend Phys: Kory Crocker MD Discharge: Date of : 37 Report #: [id number] THIS REPORT FOR: cc: Edmund De Leon MD, Steven A. MD Couchonnal,David Laurent MD ~ THIS REPORT FOR: //name// [facility] ED Test Date: 2020-04-06 Test Time: 13:45:07 Pat Name: JEREMY GAFFNEY Department: Room: 238 Gender: F Orthopedic Physician: jade : [id number] Requested By: Cydney Arreola Order Number: [id number] MD: David Otto Measurements Intervals [place] Rate: 72 P: [place]: QRS: 114 QRSD: 115 T: 266 QT: 356 QTc: 390 Interpretive Statements Atrial fibrillation Nonspecific intraventricular conduction delay Borderline low voltage, extremity leads Compared to ECG 12/25/2019 18:52:23 Electronically Signed On 04-08-2020 11:44:36 CDT by David Otto [email or web address] <ELECTRONICALLY SIGNED> By: David Otto MD 04/08/20 1144 1345 1345 David Otto MD /EPI
--- NOTE | 2020-04-08 13:41 | NUR ---
ASSUMED CARE OF PT AT 0700. PT ALERT TO SELF AND SITUATION, FORGETFUL, ANXIOUS, RAMBLING AT TIMES. MEDS CRUSHED IN APPLE SAUCE - TOLERATED WELL. AFEBRILE. HYPOTENSIVE BUT STABLE - ASYMPTOMATIC. CLOUDY URINE. GENERALIZED PAIN WHEN TOUCHED. ASKING TO BE LEFT ALONE MOSTLY. SMALL APPETITE. TRANSFERED TO 2N/CCU AT APPROX 1300.
--- NOTE | 2020-04-08 14:23 | NUR ---
TO UNIT FROM ICU 238 AT 1300 BY BED, REPORT FROM MARIA GUADALUPE HARRIS. CONSTANT FRANTIC VERBALIZATIONS, MINOR, CONSTANT REQUESTS. VSS, RC AFIB PER TELE. FALL PRECAUTIONS PUT IN PLACE. CLOSE TO NURSES' STATION. URINE IN MAYES DARK WITH PARTICULATE MATTER. WILL CONTINUE TO FOLLOW CLOSELY.
[2020-04-08 17:23] LABS: ABSOLUTE NEUTROPHILS 3.9 thou/uL (1.4-8.2); BASOPHILS 0.4 % (0.0-2.0); EOSINOPHILS 0.7 % (0.0-3.0); HEMATOCRIT 37.9 % (37.0-47.0); HEMOGLOBIN 13.1 gm/dL (12.0-15.0); LYMPHOCYTES 10.3 % (24.0-44.0); MCHC 34.7 g/dL (28.0-37.0); MCV 89.3 fL (80.0-100.0); MONOCYTES 3.7 % (1.0-8.0); PLATELET COUNT 71 thou/uL (150-400); POLYS 84.9 % (36.0-66.0); RBC 4.24 mil/uL (4.20-5.00); WBC 4.6 thou/uL (4.0-11.0)
[2020-04-08 17:43] LABS: CALCIUM 7.9 mg/dL (8.5-10.1); CREATININE 0.8 mg/dL (0.6-1.0); POTASSIUM 3.6 mmol/L (3.5-5.1); TOTAL BILIRUBIN 2.3 mg/dL (0.2-1.0); TOTAL PROTEIN 3.8 g/dL (6.4-8.2)
--- NOTE | 2020-04-08 22:54 | HC ---
[facility] [place] [address] CONSULTATION Name: JEREMY YE Room #: 217-P ADM IN M.R.#: [id number] Admission: 04/06/20 Attend Phys: Kory Crocker MD Discharge: Date of : 37 Report #: [id number] THIS REPORT FOR: cc: Edmund De Leon MD,Bcek Shook MD, MD ~ CC: Kory De Leon DATE OF SERVICE: 04/07/2020 TYPE OF CONSULTATION: INFECTIOUS DISEASE HISTORY OF PRESENT ILLNESS:Ms Ye is an 84-year-old white female [place], who is on chronic oxygen for COPD. The patient became confused and took off her oxygen. She became more confused and went into respiratory failure. She was transferred to the hospital where she was evaluated and admitted. Cultures were obtained. They have come back showing gram-positive cocci in 1 out of 2 blood cultures and E. coli in the urine. In this setting, Infectious Disease consultation was requested. PAST MEDICAL HISTORY: Significant for heart disease with atrial fibrillation, pacemaker, and heart failure. She has oxygen dependent COPD. She has a history of hypertension and hyperlipidemia. The patient has a history of CLL and lymphoma, I believe B-cell. She has chronic back issues with spinal stenosis, chronic back pain, and several compression fractures. The patient has a history of dementia, anxiety, and depression. ALLERGIES: No drug allergies. SOCIAL HISTORY: The patient is . She lives in a prison. At this time, there is no use of tobacco, alcohol, nor drugs. REVIEW OF SYSTEMS: Unavailable as the patient is not verbal. PHYSICAL EXAMINATION: GENERAL: The patient is awake, but somewhat agitated, particularly when stimulated. When left at rest, she appears comfortable and in no distress. VITAL SIGNS: Show the patient has been afebrile since coming to the hospital. Blood pressure is 95/53, pulse is 60. SKIN: Shows a number of excoriations on the right thigh. There is some irritation in the perineal area. The skin is generally pale. There are some varicose veins, but there are no significant areas of ulceration, cellulitis. ENT: Negative. NEUROLOGIC: Mentally, the patient will moan or cry out when disturbed. No verbal communication. I understand that at baseline the patient is able to [facility] [address] [place] [address] CONSULTATION Name: JEREMY YE Room #: 217-P [facility] IN M.R.#: [id number] Admission: 04/06/20 Attend Phys: Kory Crocker MD Discharge: Date of : 37 Report #: [id number] converse and is oriented. HEART: Sounds S1 and S2. Regular rate and rhythm. CHEST: Breath sounds are diminished bilaterally. ABDOMEN: Belly is slightly tender and firm, but not hard. No guarding, no rebound. Bowel sounds are diminished. EXTREMITIES: Unremarkable. LABORATORY DATA: The white count has gone from 8.6 to 4.9, hemoglobin 13, hematocrit 37.8, platelets 62,000. The electrolytes are normal. BUN has gone from 37 to 31 and creatinine has gone from 1.1 to 0.7 with hydration. Glucose 56. Liver function tests are normal. The blood gases on 1.5 liter nasal cannula showed pH 7.43, pCO2 of 52, pO2 of 67. The chest x-ray is clear. One out of two blood cultures are growing Gram-positive cocci, identification and susceptibility studies probably by tomorrow. Urinalysis shows 0-5 white cells, but E. coli in the culture. The chest x-ray is clear. The bilirubin is elevated at 3.2 (direct 1.1). Lactic acid was normal at 1.3. Troponin slightly elevated at 0.08. The BNP was elevated at 5587. ASSESSMENT: In summary, the patient took off her oxygen and then decompensated. She now has pancytopenia. One out of two blood cultures has gram-positive cocci. Urinalysis is fairly bland, but the culture shows Escherichia coli. There is no obvious source of infection. I am not convinced there is an infection etiology to the patient's problem here. This could just be decompensation because she became confused and took off her oxygen. I think it is reasonable to continue broad-spectrum antibiotic therapy with vancomycin and Zosyn for now. We will repeat the cultures. If workup continues to be negative, we may consider deescalating or even discontinue the antibiotic therapy. We can look for sedimentation rate, procalcitonin, lactate and white count to look for evidence of inflammation or infection. <ELECTRONICALLY SIGNED> By: Beck Gold MD 04/08/20 2254 [id number] 1711 Beck Gold MD /nt
[2020-04-09] VITALS (16 sets, daily range): BP systolic 91–149; BP diastolic 44–66
[2020-04-09 04:56] LABS: APTT 31.1 Seconds (24.5-32.8); DIRECT BILIRUBIN 0.6 mg/dL (<0.1-0.2); INR 1.1; PROTIME 11.2 Seconds (9.3-11.4)
--- NOTE | 2020-04-09 08:18 | NUR ---
ASSUME CARE 1900. PT A/O TO PERSON ONLY. MAKES INCOMPREHENSIBLE NOISES BUT SOMETIMES MANAGES TO COMMUNICATE NEEDS LIKE "WATER," "I AM COLD." UNABLE TO ASSES PAIN BUT MOANS TO TOUCH AND MOVEMENT. MORPHINE FOR PAIN AND HELPS PT RELAX WELL. NO FURHTER DISTRESS NOTED. AFIB/AFL ON MONITOR WITH PVCs. PROGRESSING SLOWLY WITH POC. PLAN IS TO CONTINUE TREATMENT WITH ABX. WILL CONTINUE TO MONITOR AND FOLLOW WITH POC
--- NOTE | 2020-04-09 18:09 | NUR ---
ASSESSMENT DOCUMENTED, MINIMUM VERBAL RESPONDS, VSS, AND DENIES ANY DISCOMFORT. S/P GALLBLADDER DRAIN PLACEMENT, VSS, AND PATIENT TOLERATED CLEAR LIQUID DIET, Q2 POSITIONED NEEDED AND FOR COMFORT. PATIENT SONS REBEL AND BETSEY UPDATED WITH PATIENT CONDITION AND PROGRESS. AND WILL CONTINUE WITH POC.
[2020-04-10 04:45] VITALS: BP 104/55
[2020-04-10 04:48] LABS: ABSOLUTE NEUTROPHILS 3.4 thou/uL (1.4-8.2); BASOPHILS 0.3 % (0.0-2.0); EOSINOPHILS 0.5 % (0.0-3.0); HEMATOCRIT 35.7 % (37.0-47.0); HEMOGLOBIN 12.2 gm/dL (12.0-15.0); LYMPHOCYTES 13.8 % (24.0-44.0); MCH 30.5 pg (26.0-34.0); MCHC 34.1 g/dL (28.0-37.0); MCV 89.3 fL (80.0-100.0); MONOCYTES 5.1 % (1.0-8.0); PLATELET COUNT 62 thou/uL (150-400); POLYS 80.3 % (36.0-66.0); RDW 15.4 % (10.5-14.5); WBC 4.2 thou/uL (4.0-11.0)
--- NOTE | 2020-04-10 05:21 | NUR ---
PATIENT IS PROGRESSING SLOWLY IN CARE PLAN. VITAL SIGNS STABLE WITH PATIENT HAVING NO COMPLAINTS OF NAUSEA. NURSE DID PERCEIVE PAIN ON BEHALF OF PATIENT. ORIENTED TO SELF, PATIENT IS CONFUSED. BREATHING STABLE WHEN ON NASAL CANNULA WHICH PATIENT ATTEMPTS TO REMOVE FREQUENTLY. SKIN CARE WITH FREQUENT TURNS PROVIDED. CONTINUE PLAN OF CARE.
[2020-04-10 05:39] LABS: ALBUMIN 1.8 g/dL (3.4-5.0); CALCIUM 7.5 mg/dL (8.5-10.1); CREATININE 0.7 mg/dL (0.6-1.0); POTASSIUM 3.1 mmol/L (3.5-5.1); TOTAL BILIRUBIN 1.4 mg/dL (0.2-1.0); TOTAL PROTEIN 4.1 g/dL (6.4-8.2)
[2020-04-10 05:44] LABS: ALBUMIN 1.8 g/dL (3.4-5.0); DIRECT BILIRUBIN 0.5 mg/dL (<0.1-0.2); TOTAL BILIRUBIN 1.4 mg/dL (0.2-1.0); TOTAL PROTEIN 4.1 g/dL (6.4-8.2)
[2020-04-10 08:00] VITALS: BP 108/71
--- NOTE | 2020-04-10 12:58 | NUR ---
VAT CONSULTED FOR A PICC FOR VANCO, 4FRSLPICC PLACED RUABRACHIAL WITH TIP AT [facility], PLEASE SEE INSERTION NI FOR DETAILS
--- NOTE | 2020-04-10 16:11 | NUR ---
CM RECEIVED PC FROM PT'S SON REBEL THIS AFTERNOON INDICATING THAT PT IS GOING TO ROOM 450. HE INDICATED THAT IF PT CAN DO ANY THERAPY HE WOULD LIKE FOR PT TO GO TO [facility] REFERRAL HAD BEEN SENT FRIDAY. HE INDICATED THAT HE ISN'T PAYING BED HOLD AT [facility] AND THAT HE NEEDS ASSISTANCE IN FINDING NEW LTC PLACEMENT FOR PT AFTER REHAB. CM INDICATED THAT LIST COULD BE SENT FOR HIM TO REVIEW AND DESIGNITE PLACES HE WOULD BE INTERESTED IN HAVING REFERRALS SENT TO FOR REVIEW. LIST SENT VIA EMAIL. CM TO FOLLOW INDICATED WITH DC PLANNING.
[2020-04-10 16:20] VITALS: BP 107/65
--- NOTE | 2020-04-10 16:28 | NUR ---
Faxed referral update to [facility] for skilled care. They want to review nursing notes tomorrow.
--- NOTE | 2020-04-10 16:34 | NUR ---
PT CARE ASSUMED AT 0700, PT ALERT AND ORIENTED TO X3, DISORIENTED TO DAY. PT DENIES CHEST PAIN, NAUSEA AND VOMITING. PT COMPLAINS OF BACK PAIN, MEDICATED PER ORDER. PT IS ON 2L OF O2, NO DISTRESS NOTED. CALL LIGHT AND TABLE WITHIN REACH. BED AT LOWEST LEVEL WITH ALARM ON. WILL CONTINUE TO MONITOR.
--- NOTE | 2020-04-10 16:36 | NUR ---
PT TRANSFER TO , REPORT GIVEN TO MIKAEL. PT SON AWARE ABOUT TRANSFER. ALL PT BELONGINGS PACKED AND SENT UP WOTH PT.
[2020-04-10 19:13] VITALS: BP 118/79
--- NOTE | 2020-04-10 20:10 | NUR ---
Pt transfered to floor per bed from ccu at 1625 in stable condition.Pt in bed sleeping on and off but sometimes moaning.Pain shot given as ordered with relief.Tele pack applied by project engineering director.Biliary drain to rlq with green drainage. Report off to non rn.
--- NOTE | 2020-04-10 21:58 | NUR ---
NOTICED PT'S R ARM IS PURPLE,COLD. POSITIVE RADIAL PULSE. CALLED . RECIEVED AN ORDER TO D/C PICC STAT AND PUT STAT ARTERIAL DOPPLER OF THE R ARM.
[2020-04-11 08:39] VITALS: BP 108/56
--- NOTE | 2020-04-11 15:32 | NUR ---
Assumed pt care at 7am.Assessment completed.vss.Pt in bed sound asleep at the start of shift till around 9am.Pt yells on and off but easy to reoriented . Pt tolerated meds and drank apple juice.Repositioned for comfort.No soa or verbal c/o.Will continue to monitor.
[2020-04-11 16:39] LABS: ALBUMIN 1.7 g/dL (3.4-5.0); CALCIUM 7.8 mg/dL (8.5-10.1); CREATININE 0.5 mg/dL (0.6-1.0); TOTAL BILIRUBIN 1.1 mg/dL (0.2-1.0); TOTAL PROTEIN 3.5 g/dL (6.4-8.2)
[2020-04-11 18:36] VITALS: BP 109/88
[2020-04-11 19:21] VITALS: BP 105/59
--- NOTE | 2020-04-12 01:18 | NUR ---
PT'S MIDNIGHT ACCUCHECKS WAS 80 100 ML'S D10 GIVEN IVPB RECHECK AFTER ACCUCHECK UP TO 114.
--- NOTE | 2020-04-12 04:38 | NUR ---
Progress PT NOT ORIENTED AND DOES NOT ANSWER QUESTIONS YELLS OUT FOR WATER AND FOR HELP BUT DOESNT ANSWER QUESTIONS AND FIGHTS CARES TRIED TO SCRATCH RADON INSPECTOR DURING PERICARE. VSS REPOSITIONED FREQUENTLY, IV INTACT INTERMITTENT ANTIBIOTICS GIVEN. 0.5 MG ATIVAN GIVEN X 2 WITH EFFECT PT SETTLED AND SLEPT AFTER. HAD A NODERATE LIQUID REDDISH BROWN BM, MAYES INTACT DRAINING DIOMEDES URINE. TELE INTACT READING IRREGULAR RHYTHM AFIB HEART RATES IN 70'S TO 80'S.
[2020-04-12 09:25] VITALS: BP 111/52
--- NOTE | 2020-04-12 14:09 | NUR ---
ASSUMED CARE OF PT AT SHIFT CHANGE, DOES NOT SPEAK, CAN BE ALERT, WILL MAKE INCOMPREHENSIBLE SOUNDS WHEN ASKED IF SHE'D LIKE TO HAVE A BITE OF FOOD, THEN OPENS MOUTH, HAS A HABIT OF OPENING AND CLOSING MOUTH REPEATEDLY WHEN AWAKE YET WILL OPEN TO TAKE A SMALL BITE OF FOOD. UNK STATUS OF AMBULATION PER REPORT, CM STATES SHE WAS IN AL AT ONE POINT RECENTLY. SONDRA DRAIN WITH DRAINAGE, SEE SEPARATE INTERVENTIONS FOR ASSESSMENTS. SACRUM AREA SLIGHTLY RED, BARRIER CREAM APPLIED. REPOSITIONING FREQUENTLY, SHE CAN REACH OUT AND APPEAR COMBATIVE WITH CARES, GENTLE INSTRUCTION GIVEN. WILL CONTINUE TO MONITOR
[2020-04-12 15:30] VITALS: BP 112/57
--- NOTE | 2020-04-12 16:05 | NUR ---
INSULATION BOARD HEAD SAW OPERATOR CALLED TO SAY THEY WERE NOT GOING TO ALLOW HER SON TO VISIT SOMEWHERE THEY VIEWED PT WAS COVID +. I LET HER KNOW PT IS NOT AND SON CAN COME ON UP. TRIED COVID SUPV, NO ANSWER NOR VM.
--- NOTE | 2020-04-12 16:10 | NUR ---
PT IS PROGRESSING SLOWLY TOWARD GOAL OF DISCHARGE. PT STILL HAS SONDRA DRAIN IN PLACE. PT ISN'T PARTICIPATING WITH THERAPY CONSISTANTLY OF YET. CM TO UPDATE [facility] ONCE UPDATES ARE AVAIABLE. CM TO FOLLOW INDICATED WITH DC PLANNING.
[2020-04-12 19:55] VITALS: BP 115/38
[2020-04-12 23:30] VITALS: BP 159/62
--- NOTE | 2020-04-13 04:03 | NUR ---
ASSUMED PT CARE AT APPROXIMATELY 1900. PT WAS LAYING IN BED WITH EYES CLOSED. DISPLAYS S/S OF PAIN WITH TACTILE STIMULATION AND MOVEMENT. PRN PAIN MEDICATION GIVEN DIRECTED. PT IS ABLE TO ANSWER YES/NO QUESTIONS AT TIMES. EDEMATOUS WITH 3 PLUS PITTING EDEMA IN ALL EXTREMITIES. ARMS AND LEGS ELEVATED WITH PILLOWS. PT REPOSITIONED EVERY 2 HOURS FOR COMFORT. SACRAL AREA EXCORIATED BARRIER OINTMENT APPLIED. PT IS CURRENTLY IN HER BED AND APPEARS TO BE SLEEPING. FALL PRECAUTIONS IN PLACE, CALL LIGHT WITHIN REACH. WILL CONTINUE TO MONITOR.
[2020-04-13 05:00] VITALS: BP 106/66
[2020-04-13 07:08] VITALS: BP 121/73
[2020-04-13 15:28] VITALS: BP 97/53
--- NOTE | 2020-04-13 18:39 | NUR ---
PT REFUSED TO OPEN EYES, ALL SHE WOULD DO IS MOOD AND GRIMACE WHEN BEING MOVED AND REPOSITIONED. PT RECEIVED IV PAIN ANALGESIC FOR COMFORT. PT TURNED Q2 HRS. PT APPETITE IS POOR, IV PATENT IN L UPPER ARM. PT HAS WEEPING AND GENERALIZED EDEMA/3RD SPACING IN BUE & BLE. WILL CONTINUE TO MONITOR.
[2020-04-13 19:25] VITALS: BP 100/58
[2020-04-13 21:16] LABS: ALBUMIN 1.6 g/dL (3.4-5.0); CALCIUM 7.7 mg/dL (8.5-10.1); CREATININE 0.6 mg/dL (0.6-1.0); DIRECT BILIRUBIN 0.4 mg/dL (<0.1-0.2); POTASSIUM 4.2 mmol/L (3.5-5.1); TOTAL BILIRUBIN 1.2 mg/dL (0.2-1.0); TOTAL PROTEIN 3.3 g/dL (6.4-8.2)
--- NOTE | 2020-04-14 03:06 | NUR ---
VSS-AFEBRILE. CONGESTED COUGH WITH NO SPUTUM PRODUCTION. TURNED AND OFFERED FLUIDS EVERY 2 HOURS, MOANS AND YELLS OUT WITH ANY PHYSICAL MANIPULATION. SCARAL AREA EXCORITED, APPLIED BARRIER CREAM FREQUENTLY. UPPER AND LOWER EXTREMITIES WEEPING AND EDEMATOUS, SLIGHT IMPROVEMENT WITH ADMINISTRATION OF IV LASIX. INCREASED URINE OUTPUT WITH IV DIURETIC WELL. ELEVATED UPPER AND LOWER EXTREMITIES TO EASE SWELLING. PARTIAL BATH AND MAYES CARE COMPLETED, INCONTINENT OF SOFT AND UNFORMED BM THIS SHIFT. FALL PRECAUTIONS IN PLACE.
[2020-04-14 08:00] VITALS: BP 95/40
[2020-04-14 08:32] LABS: ALBUMIN 1.6 g/dL (3.4-5.0); CALCIUM 8.1 mg/dL (8.5-10.1); CREATININE 0.9 mg/dL (0.6-1.0); POTASSIUM 3.9 mmol/L (3.5-5.1); TOTAL BILIRUBIN 1.5 mg/dL (0.2-1.0); TOTAL PROTEIN 3.8 g/dL (6.4-8.2)
--- NOTE | 2020-04-14 09:26 | NUR ---
Pt has had minimal intake past week due to npo/liquids x 6 days and poor appetite with diet advance. May want to consider temporary nutrition support via PPN until eating
--- NOTE | 2020-04-14 13:47 | NUR ---
CM SPOKE WIHT PHYSICIAN THIS DAY AWAITING INPUT FROM SURGERY TO INDICATED IF/WHEN FURTHER INTERVENTION IS NEEDED AND LOOKING TO ADDRESS NUTRITIONAL SUPPORT. CM SPOKE WITH SON THIS DAY. HE INDICATED HE IS STILL HOPEFULL THAT PT WILL BE ABLE TO GO TO [facility]HAB UPON DC BUT REALIZES THAT PT IS VERY LOW LEVEL AT THIS TIME. PT NOT WORKING WITH THERAPY. HE INIDCATED HE IS INTERESTED IN LOOKING AT LTC AT [facility], AND [facility] FOR LTC PLACEMENT. HE AGREEG WITH REFERRALS BEING SENT TO FACILITIES FOR REVIEW. CM TO FOLLOW INDICATED WITH DC PLANNING.
[2020-04-14 16:40] LABS: BE(vivo) 6.9 mmol/L (-2 to +3); HCO3 30.4 mmol/L (22.0-26.0); PCO2 39.2 mmHg (35.0-45.0); PO2 151.4 mmHg (80.0-100.0); pH 7.507 (7.360-7.450); sO2 99.1 % (92.0-98.0)
--- NOTE | 2020-04-14 17:41 | NUR ---
PICC ORDERED FOR THIS PT FOR AMPICILLIN AND HAS BILAT EILEEN LUCAS. HAD PLACED A NEW PIV THIS AM AND IT IS BRISKLY PATENT. RN WANTS TO WAIT ON PICC. IF CL ACCESS IS NEEDED SHE WILL CALL BACK. PT CANNOT CONSENT, WILL NEED FAMILY.
[2020-04-14 18:33] VITALS: BP 110/60
--- NOTE | 2020-04-14 19:51 | NUR ---
Assumed pt care this am, pt does not respond to verbal ques arms and legs are weeping. +3 edema noted on extremities that have gone down through out the day. 2 lites of O2 via NC maintained, would desat to the 70% when not on O2. BM noted, adrianna care and complete bed change done. Sacral area is escoriated, Z-guard place. Biliary drain inplace patent and draining green fluid. fc in place draining orange urine, minimal output noted. Pt is a feeder would only have small frequent feedings through out the day. Pt prefers to have apple sauce, pudding and yoghurt, medications are crushed and given with such. POC followed, pt would moan and groan at times and when moved, medication given. Q2 full turns done through out the day. Atempt tp asiyace Dobhub pt katherin back and pulled out tube informed MD. Endorsed to the night nurse.
[2020-04-15 04:40] VITALS: BP 91/46
--- NOTE | 2020-04-15 06:29 | NUR ---
VSS-AFEBRILE. LUNGS DIMINISHED IN ALL ELAM BILATERALLY-ROOM AIR. ALERT AND ORIENTED X 2-3, LETHARGIC AND WEAK. INCONTINENT OF BLADDER OVERNIGHT, NO BM THIS SHIFT. C/O BACK PAIN IN SACRAL AREA, WELL CONTROLLED WITH PO PAIN MEDICATION. TOLERATING SIPS OF WATER, NO DYSPHAGIA NOTED. ON ASSESSMENT, BOWN, SCARRED, CLOSED AND HEALED SKIN, NO PAIN TO TOUCH, NO DISCHARGE NOTED. TURNED AND OFFERED ORAL HYDRATION EVERY TWO HOURS FOR COMFORT. FALL PRECAUTIONS IN PLACE.
--- NOTE | 2020-04-15 06:34 | NUR ---
VSS-AFEBRILE. LUNGS COURSE, DIMINISHED IN ALL ELAM BILATERALLY. 2LNC REMAINS IN PLACE. TOTAL BATH, INCLUDING CATHETER CARE AND LINEN CHANGE PERFORMED. OFFERED ORAL HYDRATION AND TURNED EVERY TWO HOURS FOR COMFORT. FALL PRECAUTIONS IN PLACE.
[2020-04-15 07:20] VITALS: BP 81/52
[2020-04-15 15:10] VITALS: BP 162/50
--- NOTE | 2020-04-15 20:10 | NUR ---
Assumed pt care this am, weeping on arms and legs have lessened compared to yesterday am. Jocelyn-care done through out the day, z-guard and barried cream. FC in place drainig dark orange urine. blood in stools noted, MD informed. Frequent feedings and hydration done through out the day, fluids best taken with a syringe. POC followed with no signs of distress noted, son came to visit earlier. Endorsed to he night nurse.
[2020-04-15 20:16] VITALS: BP 122/46
[2020-04-15 20:21] LABS: HEMATOCRIT 25.2 % (37.0-47.0); HEMOGLOBIN 8.5 gm/dL (12.0-15.0); MCH 30.8 pg (26.0-34.0); MCHC 33.9 g/dL (28.0-37.0); MCV 90.8 fL (80.0-100.0); RBC 2.77 mil/uL (4.20-5.00); RDW 15.8 % (10.5-14.5); WBC 3.9 thou/uL (4.0-11.0)
[2020-04-16 06:17] LABS: HEMATOCRIT 24.4 % (37.0-47.0); HEMOGLOBIN 8.3 gm/dL (12.0-15.0); MCHC 34.2 g/dL (28.0-37.0); MCV 90.6 fL (80.0-100.0); PLATELET COUNT 58 thou/uL (150-400); RBC 2.69 mil/uL (4.20-5.00); RDW 15.8 % (10.5-14.5); WBC 2.9 thou/uL (4.0-11.0)
[2020-04-16 07:15] VITALS: BP 98/51
--- NOTE | 2020-04-16 07:22 | NUR ---
ASSUMED PT CARE AROUND 1930. RECEIVED IN BED SLEEPING. RECEVIED A REPORT FROM PREVIOUS RN THAT PT'S BEEN HAVING BLOODY STOOL AND SHE HAS PAGED . CALLED BACK AND NEW ORDERED RECEIVED AND CARRIED OUT. VSS. UE WEEPING CONTINUES. CARE TRANSFERRED TO INCOMING RN AT THIS TIME.
[2020-04-16 10:01] LABS: ABSOLUTE NEUTROPHILS 2.3 thou/uL (1.4-8.2)
[2020-04-16 10:02] LABS: ANISOCYTOSIS 1+; PLATELET ESTIMATE DECREASED
--- NOTE | 2020-04-16 11:05 | NUR ---
Assumed pt care at 7am. Pt in bed moaning .Assessment completed.vss.morphine ivp given with relief.Customer Service Agent fed pt at breakfast.Fair appetite.meds given via syringe with apple juice and well tolerated.Dr Crocker paged via answering service to notified about pt meeting sepsis protocol.Order noted.Will continue to monitor.
[2020-04-16 15:05] VITALS: BP 97/60
[2020-04-16 20:11] VITALS: BP 112/62
--- NOTE | 2020-04-17 01:05 | NUR ---
ASSUMED PT CARE AROUND 1930. VSS. DISORIENTED, DOES NOT FOLLOW ANY COMMANDS. PERSISTENT UE WEEPING. NO S/S ACUTE DISTRESS NOTED OR REPORTED AT THIS TIME. WILL CONT TO MONITOR FOR ANY CHANGES IN CONDITION.
[2020-04-17 06:56] VITALS: BP 105/55
--- NOTE | 2020-04-17 09:50 | NUR ---
Pt with poor nutrition status, severe protein calorie malnutrition and has inadequate nutrition intake since admit. Recommend start of dobhoff nutrition, or change IVF to clinimix PPN.
--- NOTE | 2020-04-17 10:31 | NUR ---
Assumed pt care at 7am.Pt in bed moaning on and off.Assessment completed.vss. Pain shot given as ordered with relief.Pt refused all po meds and breakfast. Ivf infusing as ordered.Resting in bed with o2 on at present.Will continue to monitor.
--- NOTE | 2020-04-17 10:43 | NUR ---
WOUND CONSULT; UPON ASSESSMENT TWO RIGHT HIP DTI'S WERE IDENTIFIED. PURPLE SKIN CHANGES CONSISTENT WITH DEEP TISSUE INJURY WELL A STAGE 2 SACRAL PRESSURE WOUND. THE SACRAL WOUND HAS A SMALL AMOUNT OF SEROSANGINOUS DRAINAGE. NO OBVIOUS S/S OF INFECTION AT THIS TIME. RECOMMENDATIONS; 1-A LOW AIR LOSS PUMP 2-Q2H TURING 3-BORDER FOAM TO RIGHT HIP WOUNDS, CHANGE M/W/F PRN, ZGUARD TO SACRUM 4-BILATERAL HANDS WEEPING USE AG FOAM, SECURED WITH A TUBIGRIP DISCUSSED WITH RN
--- NOTE | 2020-04-17 15:38 | NUR ---
PHYSICIAN HAD FOLLOWED UP WITH PT'S SON HANY LUQUE FRIDAY AND DISCUSSED PLAN OF CARE AND OPTIONS. NG HAD BEEN TRIED BUT PT PULLED IT OUT. PT'S SON INDICATED THAT PT HAD [facility]VANCED [facility] THAT INDICATED NO FEEDING TUBE. COPY OF [facility] IN CHART. PHYSICIAN SPOKE WITH REB[facility] AGAIN THIS DAY AND THEY HAD INDICATED INTEREST IN HOSPICE SERVICES WITHER HOSPICE HOUSE OR LTC WITH HOSPICE. CM CALLED THE FACILITIES THAT REFERRALS HAD BEEN SENT TO FOR POSSIBLE LTC LAST WEEK [facility] (), [facility], AND [facility]. [facility] AND [facility] HAVE FEMALE LTC BEDS OPEN. REBEL INDICATED THAT [facility]ICE HOUSE WOULD BE THEIR FIRST CHOICE BUT THAT THEY WOULD CONSIDER FACILITIES IF NEED. REFERRAL BEING SENT TO [facility] FOR REVIEW FOR POSSIBLE ADMISSION. CM NOTIFEIED LIASION LATOYA. CM TO REACH OUT TO SON AFTER TIME OF ASSESSEMNT IS DETERMINED.
--- NOTE | 2020-04-17 16:21 | NUR ---
FAXED REFERRAL TO [facility]) FOR LTC WITH [facility] RECEIVED CONFIRMATION AND LEFT MSG WITH ALLIE IN ADM. FAXED REFERRAL TO [facility] RECEIVED CONFIRMATION AND LEFT MSG WITH JOSE C IN ADM FAXED REFERRAL TO [facility] RECEIVED CONFIRMATION AND LEFT MSG WITH ADM. FAXED REFERRAL TO [facility] RECEIVED CONFIRMATION AND SPOKE WITH GUILLERMINA THEY WILL REVIEW. DP TO FOLLOW,
[2020-04-17 19:23] VITALS: BP 130/60
--- NOTE | 2020-04-18 05:31 | NUR ---
Assumed pt care at 1900. VSS. Pt is sleepy but awakens with stimulation and on and off moaning medicated for pain per EMAR with relief noted. Blood sugar at midnight 62 medicated per standing orders and effective 99. Pt has edema to luca arms/legs with weeping noted, elevated on pillows. [place] patent to DD with dark yellow urine, biliary drain patent with greenish drainage. IVF/Abt's infusing via RUE IV w/o problems. Fall precautions in place,pt resting quietly w/o any distress noted AFIB on telemetry and Oxygen on @ 3L/NC.Will continue to monitor pt.
[2020-04-18 07:08] VITALS: BP 110/59
--- NOTE | 2020-04-18 10:16 | NUR ---
[facility] be her to assess pt for possible house admission this am between 10:00-10:30. cm notifided pt's son wing. cm to follow as indicated with dc planning.
--- NOTE | 2020-04-18 12:17 | NUR ---
hospice house accepted pt supposed to dc between 1 and [address] santa to get orders and outside hospital dnr
[2020-04-18] MEDS ORDERED: MSL20MG/ML PO (12:35)
[2020-04-18] MEDS ORDERED: LORAZEPAM I2 MG/1 ML PO (12:36)
--- NOTE | 2020-04-18 14:08 | NUR ---
LATOYA WITH [facility] ASSESSED PT THIS AM AND INDICATED THAT PT IS APPROPRIATE FOR ADMISSION TO [facility] THIS DAY. CM NOTIFIED PHYSICIAN AND PT'S SON. THEY ARE AWARE AND AGREEABLE WITH DISHCARGE THIS DAY TO [facility]. OUT OF HOSPITAL DNR FORM SIGNED. [facility] FORM COMPLETED AND FAXED. AMBULANCE TRANSPORT ARRANGED FOR 1430. REPORT TO BE CALLED TO . NO OTHER CM INTERVENTION INDICATED. CASE CLOSED.
--- NOTE | 2020-04-18 15:03 | NUR ---
PT DISCHARGED TO HOSPICE HOUSE, PIV REMOVED BUT MAYES AND BILIARY DRAIN REMAIN IN PLACE. TELE WAS DC'D. PT ON 3L NE
== END 2020-04-18 15:06 | disposition hospice, home (50) | DRG 871 ==
LOC: ER 13:29 → ICU 16:02 → EROBS 16:02 → ICU 17:49 → 2N 04-08 13:04 → 4W 04-10 16:12
PROVIDERS: Internal Medicine; Internal Medicine Infectious Disease; Nurse Practitioner; Nurse Practitioner Family; Radiology Diagnostic Radiology; Specialist; Surgery; ADMIT Internal Medicine; ATTEND Internal Medicine
PROC: BF121ZZ Fluoroscopy of Gallbladder using Low Osmolar Contrast (ICD-10-PCS; principal; 2020-04-09)
PROC: 0F9430Z Drainage of Gallbladder with Drainage Device, Percutaneous Approach (ICD-10-PCS; principal; 2020-04-09)
PROC: 02HV33Z Insertion of Infusion Device into Superior Vena Cava, Percutaneous Approach (ICD-10-PCS; 2020-04-10)
PROC: 4B02XSZ Measurement of Cardiac Pacemaker, External Approach (ICD-10-PCS; 2020-04-11)
DX: A41.9 Sepsis, unspecified organism (principal); I50.21 Acute systolic (congestive) heart failure; G93.41 Metabolic encephalopathy; J96.01 Acute respiratory failure with hypoxia; E43 Unspecified severe protein-calorie malnutrition; K80.00 Calculus of gallbladder with acute cholecystitis without obstruction; D61.818 Other pancytopenia; K92.1 Melena; N39.0 Urinary tract infection, site not specified; E87.1 Hypo-osmolality and hyponatremia; I48.21 Permanent atrial fibrillation; I11.0 Hypertensive heart disease with heart failure; J32.2 Chronic ethmoidal sinusitis; E78.5 Hyperlipidemia, unspecified; J44.9 Chronic obstructive pulmonary disease, unspecified; Z85.72 Personal history of non-Hodgkin lymphomas; F32.9 Major depressive disorder, single episode, unspecified; K21.9 Gastro-esophageal reflux disease without esophagitis; G89.29 Other chronic pain; M54.9 Dorsalgia, unspecified; E86.0 Dehydration; E80.6 Other disorders of bilirubin metabolism; F41.9 Anxiety disorder, unspecified; B96.20 Unspecified Escherichia coli [E. coli] as the cause of diseases classified elsewhere; E87.6 Hypokalemia; J32.3 Chronic sphenoidal sinusitis; F03.90 Unspecified dementia, unspecified severity, without behavioral disturbance, psychotic disturbance, mood disturbance, and anxiety; E04.1 Nontoxic single thyroid nodule; B95.61 Methicillin susceptible Staphylococcus aureus infection as the cause of diseases classified elsewhere; Z79.01 Long term (current) use of anticoagulants; E80.4 Gilbert syndrome; Z87.81 Personal history of (healed) traumatic fracture; Z79.82 Long term (current) use of aspirin; Z95.0 Presence of cardiac pacemaker; Z87.891 Personal history of nicotine dependence; Z79.899 Other long term (current) drug therapy; Z82.49 Family history of ischemic heart disease and other diseases of the circulatory system; Z83.6 Family history of other diseases of the respiratory system; Z68.25 Body mass index [BMI] 25.0-25.9, adult; E16.2 Hypoglycemia, unspecified; Z20.828 Contact with and (suspected) exposure to other viral communicable diseases; I95.9 Hypotension, unspecified
CPT/HCPCS: 10045; 10081; 10203; 27000